=== PATIENT | male | born 1935 | race Caucasian/White ===

== ENCOUNTER 2017-12-19 19:46 | Emergency (ER) | payer MEDICARE ==
[2017-12-20 00:20] VITALS: BP 146/90
--- NOTE | 2017-12-20 07:34 | RAD ---
INDICATION: Bilateral hip pain after a fall Comparison: Similar radiograph dated April 23, 2016 TECHNIQUE: An AP view of the pelvis was obtained. FINDINGS: The left hip prosthesis is anatomically aligned in the AP projection. There is no visible periprosthetic fracture or evidence of loosening in the AP projection. There are mild degenerative changes of the right hip joint. IMPRESSION: Anatomic alignment of left hip prosthesis in the AP view.
--- NOTE | 2017-12-20 07:38 | RAD ---
INDICATION: Laceration of forehead after falling out of a wheelchair COMPARISON: Most recent CT of the brain is dated April 23, 2016 TECHNIQUE: Contiguous axial sections of the brain were obtained from the skull base to the vertex without contrast. FINDINGS: The ventricles, cisterns and sulci are within normal limits. There is a mild degree of periventricular and subcortical white matter hypoattenuation most consistent with chronic microvascular disease similar in appearance to the previous brain CT. The joe-white matter differentiation is adequately maintained and there is no sulcal effacement. No significant focal abnormality or mass effect is present. There is no evidence for intracranial hemorrhage. Overlying the right frontal bone there is mild subcutaneous thickening and induration consistent with patient's history of recent trauma. There is no underlying calvarial fracture or other acute abnormality of the visualized bones. There is a subcentimeter inspissated secretion in the right sphenoid sinus. Otherwise the visualized paranasal sinuses are clear. The mastoid air cells are well aerated bilaterally. IMPRESSION: CT findings are consistent with subcutaneous hematoma overlying the right frontal bone without acute intracranial hemorrhage or calvarial fracture.
--- NOTE | 2017-12-20 15:10 | ED ---
Braulio Gomez Sixian, scribed for Nehemias Healy MD on 12/19/17 at 2159 . Head Injury - HPI Summary HPI Summary: This patient is an 82 year old M BIBA to ED with a chief complaint of facial injury s/p a fall from his wheelchair since 1900 today. The patient rates the pain 0/10 in severity. Symptoms aggravated and alleviated by nothing. Pt states his wheelchair aburptly stopped and he fell forward on the ground. Pt with LOC per pt and NH records. - History Of Current Complaint Chief Complaint: EDFacialInjury Stated Complaint: FALL Time Seen by Provider: 12/19/17 21:39 Hx Obtained From: Patient Mechanism Of Injury: Fall From Height Of: - wheelchair Onset/Duration: Started Hours Ago, Still Present Severity Currently: None Pain Intensity: 0 Pain Scale Used: 0-10 Numeric Aggravating Factor(s): Other: - nothing Alleviating Factor(s): Other: - nothing Associated Signs And Symptoms: Other: - Patient reports LE pain when bending his legs. Patient denies lightheadedness. - Allergies/Home Medications Allergies/Adverse Reactions: Allergies Allergy/AdvReac Type Severity Reaction Status Date / Time MS Sulfa Drugs [Sulfa Drugs] Allergy Unknown Unknown Verified 07/23/13 12:36 Reaction Details PMH/Surg Hx/FS Hx/Imm Hx Endocrine/Hematology History: Reports: Hx Anemia Denies: Hx Diabetes Cardiovascular History: Denies: Hx Congestive Heart Failure, Hx Hypertension Respiratory History: Reports: Hx Seasonal Allergies GI History: Reports: Hx Gall Bladder Disease History: Reports: Hx Benign Prostatic Hyperplasia Musculoskeletal History: Reports: Hx Arthritis Sensory History: Reports: Hx Contacts or Glasses, Hx Hearing Problem Denies: Hx Hearing Aid Opthamlomology History: Reports: Hx Contacts or Glasses - Surgical History Surgery Procedure, Year, and Place: - 2002 (approx). hernia repair Hx Anesthesia Reactions: No - Immunization History Date of Tetanus Vaccine: PT STATES UNSURE Date of Influenza Vaccine: PT STATES UNSURE Infectious Disease History: No Infectious Disease History: Reports: Hx Hepatitis - about 1964 Denies: Traveled Outside the [place] in Last 30 Days - Family History Known Family History: Positive: Unknown - Unable to acquire information from pt. - Social History Alcohol Use: None Substance Use Type: Reports: None Smoking Status (MU): Never Smoked Tobacco Review of Systems Negative: Fever Positive: Other - LE pain when bending his legs Neurological: Negative - lightheadedness All Other Systems Reviewed And Are Negative: Yes Physical Exam - Summary Physical Exam Summary: Appearance: Well-appearing, no distress, Well-nourished Skin: Warm, color reflects adequate perfusion Head: 2x2 cm hematoma on the right forehead. Nontender. Dried blood ; superfical abrasions Eyes: Conjunctiva clear ENT: Normal inspection Neck: Supple, no nodes, no JVD. Respiratory: Lungs clear, Normal breath sounds, no respiratory distress Cardio: RRR, No murmur, pulses normal, brisk capillary refill Abdomen: soft, nontender, no guarding, no rebound Bowel sounds: present Musculoskeletal: Strength Intact/ ROM intact. No calf tenderness. No edema. Tender with ROM at both hips Neuro: Alert, muscle tone normal, facial symmetry, speech normal, sensory/motor intact Psychological: Normal Triage Information Reviewed: Yes Vital Signs On Initial Exam: Initial Vitals Temp Pulse Resp BP Pulse Ox 98.2 F 72 16 131/81 95 12/19/17 20:02 12/19/17 20:02 12/19/17 20:02 12/19/17 20:02 12/19/17 20:02 Vital Signs Reviewed: Yes Diagnostics - Vital Signs Vital Signs Temp Pulse Resp BP Pulse Ox 12/19/17 20:43 67 137/79 95 12/19/17 20:36 66 94 12/19/17 20:02 98.2 F 72 16 131/81 95 - Laboratory Lab Statement: Any lab studies that have been ordered have been reviewed, and results considered in the medical decision making process. - Radiology pelvis XR Radiology Interpretation Completed By: ED Physician - Pelvis XR reveals no acute fracture. ED physician has reviewed this radiology report. - CT brain CT Interpretation Completed By: Radiologist - Head CT reveals no intra or extra axial hemorrhage or collection. No mass lesion or midline shift. There is no mild to moderate cortical atrophy. The ventricles are not enlarged and are midline in position. Normal joe white matter differentiation. Low attenuation in the periventricular white matter compatible with chronic microvascular ischemic changes. The calvarium is intact. There is right supraorbital frontal scalp soft tissue swelling. Mucoperiosteal thickening and possibly a retention cyst or polyp in the right frontal sinus. The remaining visualized paranasal sinuses and mastoid air cells are clear. ED physician has reviewed this radiology report. Re-Evaluation - Re-Evaluation First Eval Change: Improved - pt awake and alert following commands. pt with minor head injury. pt continues to asymptomatic. Head Injury Course/Dx - Diagnoses Differential Diagnosis/HQI/PQRI: Cervical Sprain, Concussion With LOC, Contusion , Hematoma, Intracranial Bleed, Orbital Fracture, Skull Fracture Provider Diagnoses: Minor head injury, Abrasion Discharge - Discharge Plan Condition: Improved Disposition: HOME Patient Education Materials: Head Injury (ED), Abrasion (ED) Referrals: Marcelle Carpio MD [Primary Care Provider] - Additional Instructions: RETURN TO THE EMERGENCY DEPARTMENT FOR CHANGING OR WORSENING SYMPTOMS. The documentation as recorded by the Braulio romeo Sixian accurately reflects the service I personally performed and the decisions made by Monet martin Omari A, MD.
== END 2017-12-20 01:42 | disposition home or self-care (01) ==
LOC: ED 19:46
DX: S09.90XA Unspecified injury of head, initial encounter (principal); S01.81XA Laceration without foreign body of other part of head, initial encounter; T14.8XXA Other injury of unspecified body region, initial encounter; W05.0XXA Fall from non-moving wheelchair, initial encounter; Z88.2 Allergy status to sulfonamides; Y92.9 Unspecified place or not applicable; M25.552 Pain in left hip; M25.551 Pain in right hip
CPT/HCPCS: 70450; 72170; 99283

== ENCOUNTER 2018-05-31 08:27 | Emergency (ER) | payer MEDICARE, OTHER ==
[2018-05-31] MEDS ORDERED: Cephalexin CAP* 500 MG PO ONE (08:47)
--- NOTE | 2018-05-31 08:56 | ED ---
Skin Complaint - HPI Summary HPI Summary: Pt. is an 82-year-old male who presents emergency Department from [facility] for infection to his left hand. Pt. is unable to give a history due to hearing difficulty. No report of fever at prison. It appears pt. had a skin tear to dorsum of left hand that was steri stripped at prison. Wound now appears to be infected with surrounding cellulitis. Pt. has no complaints in the ER and is quietly watching TV. Symptoms are mild in severity. Touching affected area makes symptoms worse. Rest makes symptoms better. Past medical hx of - History of Current Complaint Chief Complaint: EDExtremityUpper Time Seen by Provider: 05/31/18 08:38 Stated Complaint: LT HAND INFECTION Hx Obtained From: Family/Street Department Dispatcher, EMS, Medical Records Pain Intensity: 2 - Additional Pertinent History Primary Care Physician: [id number] - Allergy/Home Medications Allergies/Adverse Reactions: Allergies Allergy/AdvReac Type Severity Reaction Status Date / Time Sulfa (Sulfonamide Allergy Unknown Verified 05/31/18 08:54 Antibiotics) Reaction Details Home Medications: Home Medications Trazodone HCl 50 mg PO DAILY 05/31/18 [History Confirmed 05/31/18] PMH/Surg Hx/FS Hx/Imm Hx Previously Healthy: Yes Endocrine/Hematology History: Reports: Hx Anemia Denies: Hx Diabetes Cardiovascular History: Denies: Hx Congestive Heart Failure, Hx Hypertension Respiratory History: Reports: Hx Seasonal Allergies GI History: Reports: Hx Gall Bladder Disease History: Reports: Hx Benign Prostatic Hyperplasia Musculoskeletal History: Reports: Hx Arthritis Sensory History: Reports: Hx Contacts or Glasses, Hx Hearing Problem Denies: Hx Hearing Aid Opthamlomology History: Reports: Hx Contacts or Glasses - Surgical History Surgery Procedure, Year, and Place: - 2002 (approx). hernia repair Hx Anesthesia Reactions: No - Immunization History Date of Tetanus Vaccine: PT STATES UNSURE Date of Influenza Vaccine: PT STATES UNSURE Infectious Disease History: No Infectious Disease History: Reports: Hx Hepatitis - about 1964 Denies: Traveled Outside the [place] in Last 30 Days - Family History Known Family History: Positive: Unknown - Unable to acquire information from pt. - Social History Occupation: Retired Lives: At [facility] Alcohol Use: None Substance Use Type: Reports: None Smoking Status (MU): Never Smoked Tobacco Review of Systems Constitutional: Negative Negative: Fever, Chills Gastrointestinal: Negative Negative: Vomiting, Nausea Positive: Other - Wound, redness left hand All Other Systems Reviewed And Are Negative: Yes Physical Exam Triage Information Reviewed: Yes Vital Signs On Initial Exam: Initial Vitals Temp Pulse Resp BP Pulse Ox 98.1 F 60 18 139/84 96 05/31/18 08:33 05/31/18 08:33 05/31/18 08:33 05/31/18 08:33 05/31/18 08:33 Vital Signs Reviewed: Yes Appearance: Positive: Well-Appearing - Pt. sitting up in bed, watching TV in NAD. Awake and alert. Skin: Positive: Warm, Dry Head/Face: Positive: Normal Head/Face Inspection Eyes: Positive: Normal Neck: Positive: Supple Musculoskeletal: Positive: Other - Steri strips in place to dorsum of left hand. Steri strips removed and there is a wound noted to the dorsum of hand with sorrounding erythema. No induration or fluctuance. No significant tenderness. No lymphangitis. Neurological: Positive: Normal, CN Intact II-III Psychiatric: Positive: Affect/Mood Appropriate Diagnostics - Vital Signs Vital Signs Temp Pulse Resp BP Pulse Ox 05/31/18 08:33 98.1 F 60 18 139/84 96 - Laboratory Lab Statement: Any lab studies that have been ordered have been reviewed, and results considered in the medical decision making process. Course/Dx - Course Course Of Treatment: Pt. presenting from prison with wound infection and mild cellulitis. He is afebrile and nontoxic appearing. Wound was cleaned. Will start on Keflex QID, first dose given in ED. To keep wound clean and dry. Will need wound check with PCP in 2 days. To return to ER for increased redness, swelling, fever, vomiting. - Differential Diagnoses - Skin Complaint Differential Diagnoses: Abscess, Cellulitis - Diagnoses Provider Diagnoses: Wound infection, Cellulitis Discharge - Sign-Out/Discharge Documenting (check all that apply): Patient Departure - Discharge Plan Condition: Good Disposition: HOME Prescriptions: Cephalexin CAP* [Keflex CAP*] 500 mg PO QID 10 Days #40 cap Patient Education Materials: Cellulitis (ED) Referrals: Marcelle Carpio MD [Primary Care Provider] - Additional Instructions: Follow up with PCP for wound check in 2 days Antibiotic as directed Keep wound clean and dry Return to ER for increased redness, swelling, fever, vomiting - Billing Disposition and Condition Condition: GOOD Disposition: Home
[2018-05-31 11:12] VITALS: BP 132/80
== END 2018-05-31 11:11 | disposition home or self-care (01) ==
LOC: ED 08:27
DX: S61.412A Laceration without foreign body of left hand, initial encounter (principal); L03.114 Cellulitis of left upper limb; X58.XXXA Exposure to other specified factors, initial encounter; Y92.9 Unspecified place or not applicable; Z88.2 Allergy status to sulfonamides
CPT/HCPCS: 99283; A9270-GY

== ENCOUNTER 2019-03-02 10:33 | Emergency (ER) | payer MEDICARE, OTHER ==
[2019-03-02 11:32] LABS: ABS Basophils 0.1 10^3/ul (0-0.2); ABS Eosinophils 0.6 10^3/ul (0-0.6); ABS Lymphocytes 0.5 10^3/ul (1.0-4.8); ABS Monocytes 0.8 10^3/ul (0-0.8); ABS Neutrophils 6.7 10^3/ul (1.5-7.7); Eosinophil % 6.4 %; Hematocrit 45 % (42-52); Hemoglobin 15.3 g/dL (14.0-18.0); Lymphocyte % 6.3 %; Mean Corpuscular HGB Conc 34 g/dL (31-36); Mean Corpuscular Hemoglobin 33 pg (27-31); Mean Corpuscular Volume 98 fL (80-94); Mean Platelet Volume 8.6 fL (7.4-10.4); Platelet Count 233 10^3/uL (150-450); Red Blood Count 4.62 10^6 /uL (4.18-5.48); Red Cell Distribution Width 13 % (10.5-15); White Blood Count 8.6 10^3/uL (3.5-10.8)
[2019-03-02 11:53] LABS: Albumin 3.7 g/dL (3.2-5.2); Albumin/Globulin Ratio 1.2 (1-3); BUN/Creatinine Ratio 35.6 (8-20); C Reactive Protein 3.16 mg/L (<8.01); Calcium 8.8 mg/dL (8.6-10.3); EGFR African American 124.5 (>60); EGFR Non-African American 102.9 (>60); Globulin 3.2 g/dL (2-4); Potassium 4.5 mmol/L (3.5-5.0); Total Bilirubin 0.4 mg/dL (0.2-1.0); Total Protein 6.9 g/dL (6.4-8.9)
--- NOTE | 2019-03-02 12:17 | ED ---
Respiratory - HPI Summary HPI Summary: Patient is an 83-year-old male presents to the ED for a reevaluation of a pneumonia. Patient's from [facility] and has a history of dementia. He was diagnosed with pneumonia last week and was placed on antibiotics. Practitioner states despite being on antibiotics, he continues to worsen. History is difficult as patient has dementia, however patient states he denies any SOB, CP , abdominal pain, nausea, vomiting, diarrhea, constipation. Continues to eat and drink okay. Denies any subjective fevers, sweats, chills. He says his only complaint today is that he is fatigued. Has been on antibiotics. - History of Current Complaint Chief Complaint: EDGeneral Stated Complaint: REVAL FOR PNUEMONIA PER EMS Time Seen by Provider: 03/02/19 10:35 Hx Obtained From: Patient Onset/Duration: Sudden Onset Timing: Constant Initial Severity: Moderate Current Severity: Moderate Pain Intensity: 0 Sputum Amount: Scant Aggravating Factor(s): Nothing Alleviating Factor(s): Nothing Associated Signs and Symptoms: Negative - Allergy/Home Medications Allergies/Adverse Reactions: Allergies Allergy/AdvReac Type Severity Reaction Status Date / Time Sulfa (Sulfonamide Allergy Unknown Verified 05/31/18 08:54 Antibiotics) Reaction Details Home Medications: Home Medications Acetaminophen [Acetaminophen Extra Strength] 500 mg PO Q4HR PRN 03/02/19 [ History Confirmed 03/02/19] Albuterol 2.5MG/3ML (0.083%)* [Ventolin 2.5 MG/3 ML NEB.MEME*] 2.5 mg INH Q6H PRN 03/02/19 [History Confirmed 03/02/19] Amoxicillin/Clavulanate TAB* [Augmentin TAB 875*] 875 mg PO BID 03/02/19 [ History Confirmed 03/02/19] Artificial Tears* 15 ML BTL [Polyvinyl Alcohol 1.4% OPTH*] 2 drop BOTH EYES BEDTIME PRN 03/02/19 [History Confirmed 03/02/19] Cholecalciferol (Vitamin D3) [Vitamin D3] 50,000 unit PO MONTHLY 03/02/19 [ History Confirmed 03/02/19] Magnesium Hydroxide LIQ* [Milk of Magnesia LIQ*] 30 ml PO Q3D PRN 03/02/19 [ History Confirmed 03/02/19] Sennosides/Docusate Sodium [Senna-S Tablet] 2 tab PO BID PRN 03/02/19 [History Confirmed 03/02/19] Tamsulosin CAP* [Flomax CAP*] 0.4 mg PO BEDTIME 03/02/19 [History Confirmed ] guaiFENesin LIQ* [Robitussin*] 5 mg PO Q4H PRN 03/02/19 [History Confirmed 03/02] oxyCODONE/Acetamin 5/325 MG* [Percocet 5/325 TAB*] 1 tab PO BID PRN MDD 2 tabs 03/02/19 [History Confirmed 03/02/19] traZODone TAB* [Desyrel TAB*] 25 mg PO BEDTIME PRN 03/02/19 [History Confirmed 03/02/19] PMH/Surg Hx/FS Hx/Imm Hx Previously Healthy: Yes Endocrine/Hematology History: Reports: Hx Anemia Denies: Hx Diabetes Cardiovascular History: Denies: Hx Congestive Heart Failure, Hx Hypertension Respiratory History: Reports: Hx Seasonal Allergies GI History: Reports: Hx Gall Bladder Disease History: Reports: Hx Benign Prostatic Hyperplasia Musculoskeletal History: Reports: Hx Arthritis Sensory History: Reports: Hx Contacts or Glasses, Hx Hearing Problem Denies: Hx Hearing Aid Opthamlomology History: Reports: Hx Contacts or Glasses - Surgical History Surgery Procedure, Year, and Place: - 2002 (approx). hernia repair Hx Anesthesia Reactions: No - Immunization History Date of Tetanus Vaccine: PT STATES UNSURE Date of Influenza Vaccine: PT STATES UNSURE Hx Pertussis Vaccination: Yes Immunizations Up to Date: Unable to Obtain/Confirm Infectious Disease History: Unable to Obtain/Confirm Infectious Disease History: Reports: Hx Hepatitis - about 1964 Denies: Traveled Outside the [place] in Last 30 Days - Family History Known Family History: Positive: Unknown - Unable to acquire information from pt. - Social History Occupation: Unemployed Lives: [facility] Alcohol Use: None Hx Substance Use: No Substance Use Type: Reports: None Smoking Status (MU): Never Smoked Tobacco Review of Systems Positive: Fatigue Eyes: Negative Negative: Palpitations, Chest Pain Negative: Shortness Of Breath, Cough Genitourinary: Negative Positive: no symptoms reported, see HPI Negative: Arthralgia, Myalgia Skin: Negative All Other Systems Reviewed And Are Negative: Yes Physical Exam Triage Information Reviewed: Yes Vital Signs On Initial Exam: Initial Vitals Temp Pulse Resp BP Pulse Ox 98.4 F 68 22 111/76 94 03/02/19 10:40 03/02/19 10:40 03/02/19 10:40 03/02/19 10:40 03/02/19 10:40 Vital Signs Reviewed: Yes Appearance: Positive: Well-Appearing, Well-Nourished Skin: Positive: Warm, Skin Color Reflects Adequate Perfusion Head/Face: Positive: Normal Head/Face Inspection Eyes: Positive: EOMI, Conjunctiva Clear Neck: Positive: No Lymphadenopathy Respiratory/Lung Sounds: Positive: Wheezes - bilateral Cardiovascular: Positive: RRR, Pulses are Symmetrical in both Upper and Lower Extremities Musculoskeletal: Positive: Strength/ROM Intact Neurological: Positive: Speech Normal Psychiatric: Positive: Affect/Mood Appropriate Diagnostics - Vital Signs Vital Signs Temp Pulse Resp BP Pulse Ox 03/02/19 11:44 59 18 126/81 91 03/02/19 11:16 58 17 122/77 93 03/02/19 11:00 60 23 89 03/02/19 10:44 61 16 111/76 93 03/02/19 10:40 98.4 F 68 22 111/76 94 - Laboratory Lab Results: Lab Results 03/02/19 03/02/19 03/02/19 Range/Units 11:15 11:15 11:15 WBC 8.6 (3.5-10.8) 10^3/uL RBC 4.62 (4.18-5.48) 10^6 /uL Hgb 15.3 (14.0-18.0) g/dL Hct 45 (42-52) % MCV 98 H (80-94) fL MCH 33 H (27-31) pg MCHC 34 (31-36) g/dL RDW 13 (10.5-15) % Plt Count 233 (150-450) 10^3/uL MPV 8.6 (7.4-10.4) fL Neut % (Auto) 77.7 % Lymph % (Auto) 6.3 % [place] % (Auto) 8.8 % Eos % (Auto) 6.4 % Baso % (Auto) 0.8 % Absolute Neuts (auto) 6.7 (1.5-7.7) 10^3/ul Absolute Lymphs (auto) 0.5 L (1.0-4.8) 10^3/ul Absolute Monos (auto) 0.8 (0-0.8) 10^3/ul Absolute Eos (auto) 0.6 (0-0.6) 10^3/ul Absolute Basos (auto) 0.1 (0-0.2) 10^3/ul Absolute Nucleated RBC 0.0 10^3/ul Nucleated RBC % 0.0 Sodium 139 (135-145) mmol/L Potassium 4.5 (3.5-5.0) mmol/L Chloride 106 (101-111) mmol/L Carbon Dioxide 27 (22-32) mmol/L Anion Gap 6 (2-11) mmol/L BUN 26 H (6-24) mg/dL Creatinine 0.73 (0.67-1.17) mg/dL Est GFR ( Amer) 124.5 (>60) Est GFR (Non-Af Amer) 102.9 (>60) BUN/Creatinine Ratio 35.6 H (8-20) Glucose 121 H (70-100) mg/dL Lactic Acid 1.4 (0.5-2.0) mmol/L Calcium 8.8 (8.6-10.3) mg/dL Total Bilirubin 0.40 (0.2-1.0) mg/dL AST 15 (13-39) U/L ALT 15 (7-52) U/L Alkaline Phosphatase 85 (34-104) U/L Troponin I 0.00 (<0.04) ng/mL C-Reactive Protein 3.16 (<8.01) mg/L Total Protein 6.9 (6.4-8.9) g/dL Albumin 3.7 (3.2-5.2) g/dL Globulin 3.2 (2-4) g/dL Albumin/Globulin Ratio 1.2 (1-3) Result Diagrams: 03/02/19 11:15 03/02/19 11:15 Lab Statement: Any lab studies that have been ordered have been reviewed, and results considered in the medical decision making process. Disposition - Course Course Of Treatment: Patient is here for reevaluation of his pneumonia. Currently on antibiotics, however is not improving per provider at [facility]. X-ray obtained which shows low lung volumes without evidence of a pneumonia. Labs okay with a normal white count. Vital signs are stable. Patient appears well. Wheezing noted bilaterally. However patient denies shortness of breath. He is diagnosed with bronchitis without PNA. If any symptoms worsen, he will need to be re-seen. He will be sent back to [facility]. - Differential Dx - Cardiopulmonary Differential Diagnoses - Cardiopulmonary: Other - PNA, infection, viral syndrome - Diagnoses Provider Diagnoses: Bronchitis Discharge - Sign-Out/Discharge Documenting (check all that apply): Patient Departure Patient Received Moderate/Deep Sedation with Procedure: No - Discharge Plan Condition: Stable Disposition: HOME Patient Education Materials: Acute Bronchitis (ED) Referrals: Marcelle Carpio MD [Primary Care Provider] - 2 Days Additional Instructions: Please return to the ED for worsening symptoms Your labs are normal today Chest xray shows no evidence of a pneumonia Please follow up with your PCP or practitioner at [facility] by tomorrow - Billing Disposition and Condition Condition: STABLE Disposition: Home
[2019-03-02 12:18] VITALS: BP 119/77
== END 2019-03-02 12:30 | disposition home or self-care (01) ==
LOC: ED 10:33
DX: J40 Bronchitis, not specified as acute or chronic (principal); F03.90 Unspecified dementia, unspecified severity, without behavioral disturbance, psychotic disturbance, mood disturbance, and anxiety; Z88.2 Allergy status to sulfonamides; D64.9 Anemia, unspecified; N40.0 Benign prostatic hyperplasia without lower urinary tract symptoms; I10 Essential (primary) hypertension
CPT/HCPCS: 36415; 71045; 80053; 83605; 84484; 85025; 86140; 99283

== ENCOUNTER 2019-03-17 01:59 | Inpatient (IN) | payer MEDICARE, OTHER ==
[2019-03-17] MEDS ORDERED: Albuterol/Ipratropium NEB.SOL* Albuterol 2.5 MG/Ipratropium 0.5 MG 3 ML INH ONE (02:26)
[2019-03-17] MEDS ORDERED: Albuterol 2.5 MG/3 ML NEB.SOL* (0.083%) INH ONE (02:26)
[2019-03-17] MEDS ORDERED: Fluconazole 100 MG TAB* TAB PO ONE (02:27)
[2019-03-17] MEDS ORDERED: Clotrimazole 1% CREAM* 30 GM TOPICAL ONE (02:27)
--- NOTE | 2019-03-17 02:41 | ED ---
Complex/Multi-Sys Presentation - HPI Summary HPI Summary: 83 year old M brought in by ambulance to [facility] from [facility] with a chief complaint of altered mental status since two hours ago. The patient rates the pain 0/10 in severity. Symptoms aggravated by nothing. Symptoms alleviated by nothing. [facility] staff report confusion and fatigue. Patient reports scrotum pain. - History Of Current Complaint Chief Complaint: EDGeneral Time Seen by Provider: 03/17/19 02:15 Hx Obtained From: Patient, Other: - [facility] staff Onset/Duration: Lasting Hours - 2, Still Present Timing: Constant Aggravating Factor(s): Nothing Alleviating Factor(s): Nothing Associated Signs And Symptoms: Positive: Other - Allergies/Home Medications Allergies/Adverse Reactions: Allergies Allergy/AdvReac Type Severity Reaction Status Date / Time Sulfa (Sulfonamide Allergy Unknown Verified 05/31/18 08:54 Antibiotics) Reaction Details PMH/Surg Hx/FS Hx/Imm Hx Previously Healthy: No Endocrine/Hematology History: Reports: Hx Anemia Denies: Hx Diabetes Cardiovascular History: Denies: Hx Congestive Heart Failure, Hx Hypertension Respiratory History: Reports: Hx Seasonal Allergies GI History: Reports: Hx Gall Bladder Disease History: Reports: Hx Benign Prostatic Hyperplasia Musculoskeletal History: Reports: Hx Arthritis Sensory History: Reports: Hx Contacts or Glasses, Hx Hearing Problem Denies: Hx Hearing Aid Opthamlomology History: Reports: Hx Contacts or Glasses - Surgical History Surgery Procedure, Year, and Place: - 2002 (approx). hernia repair Hx Anesthesia Reactions: No - Immunization History Date of Tetanus Vaccine: PT STATES UNSURE Date of Influenza Vaccine: PT STATES UNSURE Infectious Disease History: No Infectious Disease History: Reports: Hx Hepatitis - about 1964 Denies: Traveled Outside the in Last 30 Days - Family History Known Family History: Negative: Blood Disorder - Social History Alcohol Use: None Hx Substance Use: No Substance Use Type: Reports: None Hx Tobacco Use: No Smoking Status (MU): Never Smoked Tobacco Review of Systems Positive: Fatigue Positive: other - scrotum pain Neurological: Other - AMS, confusion All Other Systems Reviewed And Are Negative: Yes Physical Exam - Summary Physical Exam Summary: VITAL SIGNS: Reviewed. GENERAL: Patient is a well-developed and nourished MALE who is lying comfortable in the stretcher. Patient is not in any acute respiratory distress. Patient is unkept. HEAD AND FACE: No signs of trauma. No ecchymosis, hematomas or skull depressions. No sinus tenderness. EYES: PERRLA, EOMI x 2, No injected conjunctiva, no nystagmus. EARS: Hearing grossly intact. Ear canals and tympanic membranes are within normal limits. MOUTH: Oropharynx within normal limits. NECK: Supple, trachea is midline, no adenopathy, no JVD, no carotid bruit, no c- spine tenderness, neck with full ROM CHEST: Symmetric, no tenderness at palpation LUNGS: He has decreased breath sounds bilaterally with expiratory audible wheezing CVS: Regular rate and rhythm, S1 and S2 present, no murmurs or gallops appreciated. ABDOMEN: Soft, non-tender. No signs of distention. No rebound no guarding, and no masses palpated. Bowel sounds are normal. EXTREMITIES: FROM in all major joints, no edema, no cyanosis or clubbing. NEURO: Alert and oriented x 3. No acute neurological deficits. Speech is normal and follows commands. SKIN: Dry and warm Genital exam chaperoned by nurse Amara: Scrotum is macerated, moist. The exam is consistent with severe fungal infection. Triage Information Reviewed: Yes Vital Signs On Initial Exam: Initial Vitals Temp Pulse Resp BP Pulse Ox 97.9 F 65 16 133/77 93 03/17/19 02:05 03/17/19 02:05 03/17/19 02:05 03/17/19 02:05 03/17/19 02:05 Vital Signs Reviewed: Yes Diagnostics - Vital Signs Vital Signs Temp Pulse Resp BP Pulse Ox 03/17/19 02:05 97.9 F 65 16 133/77 93 - Laboratory Result Diagrams: 03/17/19 02:44 03/17/19 02:44 Lab Statement: Any lab studies that have been ordered have been reviewed, and results considered in the medical decision making process. - Radiology CXR Radiology Interpretation Completed By: ED Physician Summary of Radiographic Findings: Poor inspiratory effort. No acute infiltrate. Pending official report. Complex Multi-Symp Course/Dx Course Of Treatment: 83 year old M brought in by ambulance to [facility] from [facility] with a chief complaint of altered mental status, confusion, fatigue, scrotum pain since two hours ago. Physical exam findings show decreased breath sounds bilaterally with expiratory auditory wheezing. CXR shows poor inspiratory effort and no acute infiltrate. UAs consistent with UTI. Scrotal exam is consistent with fungal infection. In ED course, patient was given IV fluids, Albuterol, Diflucan, and clotrimazole cream. Per nurse Amara, patient has become increasing confused in the ED. Spoke with Dr. Adames, hospitalist, who agrees to admit patient. The patient will be admitted to hospitalist. The patient is agreeable to admission. - Diagnoses Provider Diagnoses: Urinary tract infection, Fungal infection - Physician Notifications Discussed Care Of Patient With: Janine Adames Time Discussed With Above Provider: 03:49 Instructed by Provider To: Other - Dr. Adames, judyist, agrees to admit patient Discharge - Sign-Out/Discharge Documenting (check all that apply): Patient Departure - Admit Patient Received Moderate/Deep Sedation with Procedure: No - Discharge Plan Condition: Stable Disposition: ADMITTED TO [facility] Patient Education Materials: Urinary Tract Infection in Men (ED) Referrals: Marcelle Carpio MD [Primary Care Provider] - 3 Days Additional Instructions: Follow up with your primary care provider in 3 days. Return to the Emergency Department for new or worsening symptoms. - Attestation Statements Document Initiated by Scribe: Yes Documenting Scribe: Karla Suero Provider For Whom Scribe is Documenting (Include Credential): Janice Oneill MD Scribe Attestation: Karla Gomez, scribed for Janice Oneill MD on 03/17/19 at 0351. Status of Scribe Document: Ready
[2019-03-17 02:44] LABS: Urine Appearance Turbid; Urine Bacteria 1+ (Absent); Urine Bilirubin Negative (Negative); Urine Blood Negative (Negative); Urine Color Amber; Urine Glucose Negative (Negative); Urine Ketones Negative (Negative); Urine Nitrite Negative (Negative); Urine Protein 2+(100 mg/dL) (Negative); Urine Red Blood Cell Trace(0-2/hpf) (Absent); Urine Specific Gravity 1.017 (1.010-1.030); Urine Uric Acid Crystals Present (Absent); Urine Urobilinogen Negative (Negative); Urine White Blood Cell 3+(>20/hpf) (Absent)
[2019-03-17] MEDS ORDERED: Piperacillin/Tazobac ADVAN(*) 3.375 GM in NS 0.9% 100 ML* 100 ML IVPB ONE (03:04)
[2019-03-17 03:10] LABS: Albumin 3.8 g/dL (3.2-5.2); Albumin/Globulin Ratio 1.2 (1-3); C Reactive Protein 10.4 mg/L (<8.01); EGFR African American 120.6 (>60); EGFR Non-African American 99.7 (>60); Globulin 3.2 g/dL (2-4); Total Bilirubin 0.5 mg/dL (0.2-1.0)
[2019-03-17 03:15] LABS: Potassium 4.3 mmol/L (3.5-5.0)
[2019-03-17 03:19] LABS: Activated Partial Thrombo Time 41.3 seconds (26.0-38.0); INR 1.04 (0.82-1.09)
[2019-03-17 03:33] LABS: ABS Eosinophils 0.5 10^3/ul (0-0.6); ABS Lymphocytes 0.5 10^3/ul (1.0-4.8); ABS Neutrophils 5.9 10^3/ul (1.5-7.7); Eosinophil % 6.1 %; Hematocrit 46 % (42-52); Hemoglobin 15.8 g/dL (14.0-18.0); Lymphocyte % 6.7 %; Mean Corpuscular HGB Conc 34 g/dL (31-36); Mean Corpuscular Hemoglobin 33 pg (27-31); Mean Corpuscular Volume 97 fL (80-94); Mean Platelet Volume 9.2 fL (7.4-10.4); Nucleated Red Blood Cells % 0.2; Platelet Count 249 10^3/uL (150-450); Red Blood Count 4.79 10^6 /uL (4.18-5.48); Red Cell Distribution Width 13 % (10-15)
[2019-03-17] MEDS ORDERED: Ondansetron INJ* 2 MG/ML VIAL IV PRN (04:14)
[2019-03-17] MEDS ORDERED: Albuterol/Ipratropium NEB.SOL* Albuterol 2.5 MG/Ipratropium 0.5 MG 3 ML INH PRN (04:14)
[2019-03-17] MEDS ORDERED: Albuterol 2.5 MG/3 ML NEB.SOL* (0.083%) INH PRN (04:16)
[2019-03-17] MEDS ORDERED: Artificial Tears* 15 ML BTL BOTH EYES PRN (04:16)
[2019-03-17] MEDS: Lactated Ringers 1000 ML Bag* 1,000 ML IV SCH ×2 (05:44→16:20)
[2019-03-17] MEDS: Heparin VIAL(*) 5000 UNITS/ML VIAL (FIVE THOUSAND) SUBCUT SCH ×3 (05:44→20:57)
[2019-03-17] MEDS: Nystatin OINT* 15 GM TOPICAL SCH ×4 (05:46→21:01)
--- NOTE | 2019-03-17 06:50 | HP ---
CC: [facility] * HISTORY AND PHYSICAL: DATE OF ADMISSION: 03/17/19 TIME OF EVALUATION: 0400. PRIMARY CARE PHYSICIAN: [facility]. CHIEF COMPLAINT: Altered mental status. HISTORY OF PRESENT ILLNESS: This is an 83-year-old male with a past medical history of rheumatoid arthritis, wheelchair bound, who presented to the emergency room from [facility] with a change in mental status. The nursing staff states he has been having issues with a scrotal wound and the decision was made to put in a López to help with healing. This evening he began pulling on his López. He pulled it out and began hallucinating and was found to have a low-grade temp of 99. At that time, decision was made by myself to bring him to the emergency room for further evaluation. The patient had a López placed back in, in the emergency room and initially was mentating and appropriate and then became confused during his emergency room visit. On my encounter, the patient is unable to stay awake to have any meaningful interaction. He is able to tell me his name. He states he is at the hospital. Otherwise, I cannot get him to follow any commands or interact due to his somnolence. Therefore, unable to obtain a review of systems. In the emergency room, the patient had labs and imaging. He was given Zosyn and Diflucan, clotrimazole topical, DuoNeb, albuterol nebulizer and referred to the hospitalist service for further evaluation. PAST MEDICAL HISTORY: According to the records: 1. Failure to thrive. 2. Constipation. 3. Hyperlipidemia. 4. Generalized muscle weakness. 5. History of a pathologic fracture. 6. Rheumatoid arthritis. 7. BPH. 8. Major depressive disorder. 9. Wheelchair bound. 10. Vitamin D deficiency. 11. Scrotal wound. MEDICATIONS: 1. Artificial tears 2 drops in both eyes at bedtime. 2. Tamsulosin 0.4 mg p.o. b.i.d. 3. Vitamin D3 50,000 units monthly. 4. Percocet b.i.d. 5. Senna 2 tablets a day for constipation. 6. Albuterol every 6 hours as needed. 7. Guaifenesin 5 mL every 4 hours as needed. 8. Milk of magnesia as needed. 9. Trazodone 25 mg at bedtime as needed. 10. Tylenol 500 mg every 4 hours as needed. ALLERGIES: SULFA. FAMILY HISTORY: Unable to obtain due to the patient's somnolence. SOCIAL HISTORY: The patient resides at [facility]. Healthcare proxy is Hollie Jean-Baptiste, his sister. Code status, MOLST form states he is a full code. REVIEW OF SYSTEMS: Unable to obtain due to the patient's somnolence. PHYSICAL EXAMINATION GENERAL: The patient is somnolent, sonorous respirations. VITAL SIGNS: Temp 97.9, pulse rate 63, respiratory rate 14, oxygen saturation 95 % on room air, blood pressure 121/69. HEENT: Head normocephalic. Pupils equal and reactive. Mildly injected. Oropharynx: Mucous membranes dry. NECK: Supple. No lymphadenopathy. RESPIRATORY: Upper airway adventitious lung sounds with faint bilateral expiratory wheezing. No increased work of breathing. Does have periods of apnea with sonorous respirations. CARDIAC: Regular rate and rhythm. Systolic murmur heard throughout. ABDOMEN: Soft, nontender, nondistended. EXTREMITIES: Trace pretibial edema. DERMATOLOGIC: The patient with edematous, erythematous scrotum with crusted lesions, patches over his scrotum. NEUROLOGIC: The patient is alert and oriented; however, he is unable to follow commands or have any meaningful interaction at this time. DIAGNOSTIC STUDIES/LAB DATA: White count 8, hemoglobin 15.8, hematocrit 46, platelets 249. INR is 1.04. Sodium 136, potassium 4.3, chloride 102, bicarb 27 , BUN 24, creatinine 0.75, glucose 88. Troponin is 0. CRP is 10. BNP is 54. Urine shows +3 leuks, +3 whites, trace reds. Bacteria, yeast present. Chest x-ray: Poor film, some prominent interstitial markings. ASSESSMENT AND PLAN: This is an 83-year-old male with a past medical history of rheumatoid arthritis, failure to thrive, wheelchair bound, presented to [facility] in the setting of altered mental status. 1. Altered mental status. Assessment: I suspect it is related to his urinary tract infection. Now he is very somnolent, so there is also a concern for a hypercapnic respiratory failure or also a neurologic process. Plan: We will admit him to [address] [place] [address]. We will obtain a head CT and an ABG to rule out any other etiology behind his altered mental status. Continue him on IV fluids and switch him over to ceftriaxone and follow up on his urine culture. Keep his López in place. We will keep him NPO for now as he has high aspiration risk. He was given p.o. Diflucan and per nursing staff he was choking on that. We will have Speech Therapy evaluate him and also check a prealbumin. 2. Scrotal lesion. Assessment: The patient given Diflucan, started on clotrimazole in the emergency room. I suspect this is yeast with secondary impetigo lesion over his scrotum. We will start him on nystatin ointment and ceftriaxone. We will also cover for impetiginous lesion. We will also order wound care to follow up in case there is no improvement. 3. Chronic medical problems. I am holding off his p.o. medications in the setting of his somnolence and high aspiration risk. 4. FEN: As mentioned NPO. IV fluids. 5. DVT prophylaxis: The patient scores high risk. Place him on heparin subcu t.i.d. 6. Code status: MOLST form is a full code. We would readdress this with the healthcare proxy during the day. PATIENT TIME: Greater than 45 minutes was spent doing the history and physical , more than half that time spent in direct patient contact. [id number]/[facility] #: [id number] KAIT
[2019-03-17] MEDS: cefTRIAXone(*) 1 GM in NS 0.9% 50 ML* 50 ML IVPB SCH (09:04)
--- NOTE | 2019-03-17 12:00 | PN ---
Subjective Date of Service: 03/17/19 Interval History: Mr. Myles is feeling fine today. He is not sure why he is in the hospital. He offers no complaints except wanting his glasses which he does not have here in the hospital. Denies CP, SOB, N/V. No concerns from nursing. Family History: Unchanged from Admission Social History: Unchanged from Admission Past Medical History: Unchanged from Admission Objective Active Medications: Albuterol (Ventolin 2.5 Mg/3 Ml Neb.Maria Elena*) 2.5 mg INH Q6H PRN SOB/WHEEZING Albuterol/Ipratropium (Duoneb (Albuterol 2.5 Mg/Ipratropium 0.5 Mg)) 1 neb INH [id number] AWAKE PRN sob/wheexing Heparin Sodium (Porcine) (Heparin Vial(*)) 5,000 units SUBCUT Q8HR [facility] Lactated Ringer's (Lactated Ringers 1000 Ml Bag*) 1,000 mls @ 100 mls/hr IV PER RATE [facility] Ceftriaxone Sodium 1 gm/ (Sodium Chloride) 50 mls @ 200 mls/hr IVPB Q24H [facility] Nystatin (Nystatin Oint*) 1 applic TOPICAL TID [facility] Ondansetron HCl (Zofran Inj*) 4 mg IV Q4H PRN NAUSEA/VOMITING Polyvinyl Alcohol (Polyvinyl Alcohol 1.4% Opth*) 2 drop BOTH EYES BEDTIME PRN DRY EYE Vital Signs - 8 hr 03/17/19 03/17/19 03/17/19 04:00 04:19 04:26 Temperature 97.2 F Pulse Rate 69 66 65 Respiratory 21 17 22 Rate Blood Pressure 122/70 98/52 (mmHg) O2 Sat by Pulse 94 95 97 Oximetry 03/17/19 03/17/19 03/17/19 04:49 05:09 05:14 Temperature 98.9 F 97.2 F Pulse Rate 65 67 65 Respiratory 17 18 22 Rate Blood Pressure 115/73 115/73 (mmHg) O2 Sat by Pulse 94 94 97 Oximetry 03/17/19 11:48 Temperature Pulse Rate Respiratory Rate Blood Pressure 82/48 (mmHg) O2 Sat by Pulse Oximetry Oxygen Devices in Use Now: None Appearance: Elderly male laying in bed in NAD Eyes: No Scleral Icterus Ears/Nose/Mouth/Throat: Mucous Membranes Moist Neck: NL Appearance and Movements; NL JVP, Trachea Midline Respiratory: Symmetrical Chest Expansion and Respiratory Effort, Clear to Auscultation Cardiovascular: NL Sounds; No Murmurs; No JVD, RRR Abdominal: NL Sounds; No Tenderness; No Distention Extremities: No Edema Neurological: - - Oriented to self Lines/Tubes/Other Access: Clean, Dry and Intact López, Clean, Dry and Intact Peripheral IV Nutrition: Taking PO's Result Diagrams: 03/17/19 02:44 03/17/19 02:44 Assess/Plan/Problems-Billing Assessment: Mr. Myles is an 83 yo M with PMH of FTT, HLD, RA, BPH, and depression; who resides at [facility] presented to the ED with AMS and was found to have a likely UTI. - Patient Problems (1) UTI (urinary tract infection) Comment: - Catheter-related, present on admission; new catheter placed in the ED - Based on UA; urine culture pending - López previously placed at [facility] d/t nonhealing scrotal wounds - Continue ceftriaxone (2) Scrotal lesion Code(s): N50.9 - DISORDER OF MALE GENITAL ORGANS, UNSPECIFIED Comment: - Erythema, edema, and dry lesions noted - Suspect yeast and/or impetigo - Received Diflucan x1 on admission - Continue nystatin (3) Altered mental status Code(s): R41.82 - ALTERED MENTAL STATUS, UNSPECIFIED Comment: - Secondary to UTI - Baseline mental status not clear (4) BPH (benign prostatic hyperplasia) Code(s): N40.0 - BENIGN PROSTATIC HYPERPLASIA WITHOUT LOWER URINRY TRACT SYMP Comment: - Continue tamsulosin (5) DVT prophylaxis Comment: - Heparin SQ (6) Full code status Code(s): Z78.9 - OTHER SPECIFIED HEALTH STATUS Comment: Status and Disposition: Inpatient. Anticipate d/c back to [facility] when medically stable. Attending: Nicole Dos Santos
[2019-03-17] MEDS ORDERED: traZODone TAB* 50 MG TAB PO PRN (12:06)
[2019-03-17] MEDS: Tamsulosin CAP* 0.4 MG PO SCH (20:57)
[2019-03-18] MEDS: Heparin VIAL(*) 5000 UNITS/ML VIAL (FIVE THOUSAND) SUBCUT SCH ×3 (05:17→21:22)
[2019-03-18 06:10] LABS: ABS Basophils 0.1 10^3/ul (0-0.2); ABS Eosinophils 0.8 10^3/ul (0-0.6); ABS Lymphocytes 0.7 10^3/ul (1.0-4.8); ABS Monocytes 0.7 10^3/ul (0-0.8); Eosinophil % 12.4 %; Hematocrit 45 % (42-52); Hemoglobin 15.4 g/dL (14.0-18.0); Mean Corpuscular HGB Conc 34 g/dL (31-36); Mean Corpuscular Hemoglobin 33 pg (27-31); Mean Corpuscular Volume 98 fL (80-94); Mean Platelet Volume 8.8 fL (7.4-10.4); Nucleated Red Blood Cells % 0.1; Platelet Count 200 10^3/uL (150-450); Red Blood Count 4.63 10^6 /uL (4.18-5.48); Red Cell Distribution Width 13 % (10-15); White Blood Count 6.1 10^3/uL (3.5-10.8)
[2019-03-18 06:27] LABS: BUN/Creatinine Ratio 27.1 (8-20); Calcium 8.8 mg/dL (8.6-10.3); EGFR African American 159.1 (>60); EGFR Non-African American 131.5 (>60); Potassium 4.3 mmol/L (3.5-5.0)
[2019-03-18] MEDS: cefTRIAXone(*) 1 GM in NS 0.9% 50 ML* 50 ML IVPB SCH (08:30)
[2019-03-18] MEDS: Nystatin OINT* 15 GM TOPICAL SCH ×3 (08:30→21:25)
--- NOTE | 2019-03-18 11:36 | PN ---
Subjective Date of Service: 03/18/19 Interval History: Patient resting with eyes closed on arrival; easily wakes. Answers most questions appropriately - was able to tell me where he was, who the president is but does not know the date. He reports he feels better - less pain, and overall feels "better". Reports "okay appetite", denies fever/chills. No CP/SOB Family History: Unchanged from Admission Social History: Unchanged from Admission Past Medical History: Unchanged from Admission Objective Active Medications: Albuterol (Ventolin 2.5 Mg/3 Ml Neb.Maria Elena*) 2.5 mg INH Q6H PRN PRN Reason: SOB/WHEEZING Albuterol/Ipratropium (Duoneb (Albuterol 2.5 Mg/Ipratropium 0.5 Mg)) 1 neb INH [id number] AWAKE PRN PRN Reason: sob/wheexing Heparin Sodium (Porcine) (Heparin Vial(*)) 5,000 units SUBCUT Q8HR [facility] Last Admin: 03/18/19 05:17 Dose: 5,000 units Lactated Ringer's (Lactated Ringers 1000 Ml Bag*) 1,000 mls @ 100 mls/hr IV PER RATE [facility] Last Admin: 03/17/19 16:20 Dose: 100 mls/hr Ceftriaxone Sodium 1 gm/ (Sodium Chloride) 50 mls @ 200 mls/hr IVPB Q24H [facility] Last Admin: 03/18/19 08:30 Dose: 200 mls/hr Nystatin (Nystatin Oint*) 1 applic TOPICAL TID [facility] Last Admin: 03/18/19 08:30 Dose: 1 applic Ondansetron HCl (Zofran Inj*) 4 mg IV Q4H PRN PRN Reason: NAUSEA/VOMITING Polyvinyl Alcohol (Polyvinyl Alcohol 1.4% Opth*) 2 drop BOTH EYES BEDTIME PRN PRN Reason: DRY EYE Tamsulosin HCl (Flomax Cap*) 0.4 mg PO BEDTIME [facility] Last Admin: 03/17/19 20:57 Dose: 0.4 mg Trazodone HCl (Desyrel Tab*) 25 mg PO BEDTIME PRN PRN Reason: INSOMNIA Vital Signs - 8 hr 03/18/19 03/18/19 03/18/19 03:51 08:00 08:26 Temperature 98.0 F 97.5 F Pulse Rate 63 49 56 Respiratory 19 16 Rate Blood Pressure 112/62 125/50 (mmHg) O2 Sat by Pulse 97 96 Oximetry 03/18/19 08:49 Temperature Pulse Rate Respiratory 16 Rate Blood Pressure (mmHg) O2 Sat by Pulse 96 Oximetry Oxygen Devices in Use Now: None Appearance: 83 yo male laying in bed A+O to self & place in NAD Eyes: PERRLA Ears/Nose/Mouth/Throat: Mucous Membranes Moist Respiratory: Symmetrical Chest Expansion and Respiratory Effort, Clear to Auscultation Cardiovascular: NL Sounds; No Murmurs; No JVD, RRR, No Edema Abdominal: NL Sounds; No Tenderness; No Distention Extremities: No Edema, No Clubbing, Cyanosis Neurological: NL Sensation, - - A+O in NAD Lines/Tubes/Other Access: Clean, Dry and Intact Peripheral IV Result Diagrams: 03/18/19 05:49 03/18/19 05:49 Microbiology and Other Data: Microbiology 03/17/19 02:30 Urine Culture - Preliminary Urine Proteus Mirabilis 03/17/19 02:44 Aerobic Blood Culture - Preliminary Blood Venous No Growth Day 1 Anaerobic Blood Culture - Preliminary No Growth Day 1 03/17/19 02:36 Aerobic Blood Culture - Preliminary Blood Venous No Growth Day 1 Anaerobic Blood Culture - Preliminary No Growth Day 1 03/17/19 09:05 Nasal Screen MRSA (PCR) - Final Nasal Mrsa Detected Assess/Plan/Problems-Billing Assessment: Mr. Myles is an 83 yo M with PMH of FTT, HLD, RA, BPH, and depression; who resides at [facility] presented to the ED with AMS and was found to have a likely UTI. - Patient Problems (1) UTI (urinary tract infection) Comment: - Catheter-related, present on admission; new catheter placed in the ED - Based on UA; urine culture pending - López previously placed at [facility] d/t nonhealing scrotal wounds - Continue ceftriaxone - Blood cx NGTD (2) Altered mental status Comment: - appears to be improving - Secondary to UTI - Baseline mental status not clear (3) Scrotal lesion Comment: - Erythema, edema, and dry lesions noted - Suspect yeast and/or impetigo - Received Diflucan x1 on admission - Continue nystatin (4) BPH (benign prostatic hyperplasia) Comment: - Continue tamsulosin (5) DVT prophylaxis Comment: - Heparin SQ (6) Full code status Comment: Status and Disposition: Inpatient. Anticipate d/c back to [facility] when medically stable, possible tomorrow.
[2019-03-18] MEDS: Lactated Ringers 1000 ML Bag* 1,000 ML IV SCH (14:04)
[2019-03-18] MEDS: Tamsulosin CAP* 0.4 MG PO SCH (21:22)
[2019-03-19] MEDS: Lactated Ringers 1000 ML Bag* 1,000 ML IV SCH (00:16)
[2019-03-19] MEDS: Heparin VIAL(*) 5000 UNITS/ML VIAL (FIVE THOUSAND) SUBCUT SCH (05:49)
--- NOTE | 2019-03-19 09:06 | DCNOTE ---
Subjective Date of Service: 03/19/19 Interval History: pt reports he feels well this morning. He is A+O to self and place sitting up in bed watching flipping through the TV channels. Denies pain. reports appetite is "okay". No fever or chills. Family History: Unchanged from Admission Social History: Unchanged from Admission Past Medical History: Unchanged from Admission Objective Active Medications: Albuterol (Ventolin 2.5 Mg/3 Ml Neb.Maria Elena*) 2.5 mg INH Q6H PRN PRN Reason: SOB/WHEEZING Albuterol/Ipratropium (Duoneb (Albuterol 2.5 Mg/Ipratropium 0.5 Mg)) 1 neb INH [id number] AWAKE PRN PRN Reason: sob/wheexing Heparin Sodium (Porcine) (Heparin Vial(*)) 5,000 units SUBCUT Q8HR [facility] Last Admin: 03/19/19 05:49 Dose: 5,000 units Ceftriaxone Sodium 1 gm/ (Sodium Chloride) 50 mls @ 200 mls/hr IVPB Q24H [facility] Last Admin: 03/18/19 08:30 Dose: 200 mls/hr Nystatin (Nystatin Oint*) 1 applic TOPICAL TID [facility] Last Admin: 03/18/19 21:25 Dose: 1 applic Ondansetron HCl (Zofran Inj*) 4 mg IV Q4H PRN PRN Reason: NAUSEA/VOMITING Polyvinyl Alcohol (Polyvinyl Alcohol 1.4% Opth*) 2 drop BOTH EYES BEDTIME PRN PRN Reason: DRY EYE Tamsulosin HCl (Flomax Cap*) 0.4 mg PO BEDTIME [facility] Last Admin: 03/18/19 21:22 Dose: 0.4 mg Trazodone HCl (Desyrel Tab*) 25 mg PO BEDTIME PRN PRN Reason: INSOMNIA Vital Signs - 8 hr 03/19/19 03:41 Temperature 97.4 F Pulse Rate 52 Respiratory 20 Rate Blood Pressure 135/59 (mmHg) O2 Sat by Pulse 100 Oximetry Oxygen Devices in Use Now: None Appearance: A+O to self and place in NAD Eyes: No Scleral Icterus, PERRLA Respiratory: Symmetrical Chest Expansion and Respiratory Effort, Clear to Auscultation Cardiovascular: NL Sounds; No Murmurs; No JVD, RRR, No Edema Abdominal: NL Sounds; No Tenderness; No Distention Neurological: NL Sensation, - - alert Lines/Tubes/Other Access: Clean, Dry and Intact Peripheral IV Nutrition: Taking PO's Result Diagrams: 03/18/19 05:49 03/18/19 05:49 Microbiology and Other Data: Microbiology 03/17/19 02:30 Urine Culture - Preliminary Urine Proteus Mirabilis 03/17/19 02:44 Aerobic Blood Culture - Preliminary Blood Venous No Growth Day 1 Anaerobic Blood Culture - Preliminary No Growth Day 1 03/17/19 02:36 Aerobic Blood Culture - Preliminary Blood Venous No Growth Day 1 Anaerobic Blood Culture - Preliminary No Growth Day 1 03/17/19 09:05 Nasal Screen MRSA (PCR) - Final Nasal Mrsa Detected Assess/Plan/Problems-Billing Assessment: Mr. Myles is an 83 yo M with PMH of FTT, HLD, RA, BPH, and depression; who resides at [facility] presented to the ED with AMS and was found to have a likely UTI. - Patient Problems (1) UTI (urinary tract infection) Comment: - Catheter-related, present on admission; new catheter placed in the ED - Based on UA; urine culture growing Proteus M. sensistive to cephlosporins - López previously placed at [facility] d/t nonhealing scrotal wounds - Continue ceftriaxone -> DC on Ceftin - Blood cx NGTD (2) Altered mental status Comment: - Resolved suspect secondary to UTI (3) Scrotal lesion Comment: - Erythema, edema, and dry lesions noted - improving with treatment - Suspect yeast - Received Diflucan x1 on admission - Continue nystatin (4) BPH (benign prostatic hyperplasia) Comment: - Continue tamsulosin (5) DVT prophylaxis Comment: - Heparin SQ (6) Full code status Comment: Status and Disposition: Inpatient. d/c back to [facility] today
[2019-03-19] MEDS: cefTRIAXone(*) 1 GM in NS 0.9% 50 ML* 50 ML IVPB SCH (09:23)
[2019-03-19] MEDS: Nystatin OINT* 15 GM TOPICAL SCH (09:23)
--- NOTE | 2019-03-19 11:02 | DS ---
Amended report to enter co-signing physician. DISCHARGE SUMMARY: DATE OF ADMISSION: 03/17/19 DATE OF DISCHARGE: 03/19/19 ATTENDING PHYSICIAN: Dr. Cabezas* (dictated by Catrachita Camarena, DUC). PRIMARY CARE PROVIDER: [facility] physician, Dr. Ferrell. DISCHARGE DIAGNOSES: 1. Altered mental status secondary to urinary tract infection. 2. Urinary tract infection with indwelling López catheter. 3. Scrotal lesion, suspect yeast with secondary impetigo lesion over his scrotum. SECONDARY DIAGNOSES: 1. Failure to thrive. 2. Constipation. 3. Hyperlipidemia. 4. General muscle weakness. 5. History of pathological fracture. 6. Rheumatoid arthritis. 7. Benign prostatic hypertrophy. 8. Major depressive disorder. 9. Wheelchair bound. 10. Vitamin D deficiency. DISCHARGE MEDICATIONS: 1. Trazodone 25 mg p.o. at bedtime p.r.n. 2. Flomax 0.4 mg p.o. at bedtime. 3. Robitussin 5 mg p.o. q.4 hours p.r.n. 4. Senna-S 2 tablets p.o. b.i.d. p.r.n. 5. Milk of magnesia 30 mL p.o. q.3 days p.r.n. 6. Vitamin D 50,000 units p.o. monthly. 7. Artificial tears 1.4% ophthalmic 2 drops both eyes at bedtime p.r.n. 8. Albuterol 2.5 mg/3 mL INH q.6 hours p.r.n. shortness of breath or wheezing. 9. Acetaminophen extra strength 500 mg p.o. q.4 hours p.r.n. New Medications: 1. Ceftin 250 mg p.o. b.i.d. x5 days. 2. Nystatin 1 application topical t.i.d. x14 days. Medications Discontinued: Oxycodone 5/325 mg p.o. b.i.d. p.r.n. ALLERGIES: SULFA. CODE STATUS: Full code. HISTORY OF PRESENT ILLNESS AND HOSPITAL COURSE: Please see history and physical by Dr. Adames for full admission details, but in summary this is an 83- year-old male with a past medical history as stated above who presented to the emergency department from [facility] for concern for altered mental status. The patient recently had a López placed for concern of issues with a scrotal wound and being incontinent of urine. The patient was noted to begin pulling on his López and he pulled it out and began hallucinating and was found to have low-grade temp of 99. Decision was made to send him to the emergency department for further evaluation. López catheter was replaced in the emergency department and on admission he was noted to be confused during evaluation. In the emergency department, the patient had no leukocytosis. CRP of 10.40. Other labs being fairly unremarkable. His urinalysis did appear to be positive for urinary tract infection. The patient has a history of Proteus mirabilis UTIs in the past. His urine culture did grow Proteus mirabilis, which is sensitive to cephalosporins. He additionally was started on ceftriaxone and has received this for 2 days and on discharge will be sent home on Ceftin. His blood cultures are negative. The patient's confusion has resolved and the patient was found to be alert and oriented to self and place. Answers questions appropriately, following commands. He does appear to have some mild cognitive decline and I suspect that this is his baseline. The patient has remained hemodynamically stable throughout hospitalization as well as afebrile. The patient's oxycodone was discontinued. On admission, he has not required oxycodone p.r.n. and has denied pain on his assessments. This will be discontinued on discharge. In regards to the patient's scrotal lesion, he was given Diflucan and started on nystatin ointment as well as ceftriaxone to cover for a possible impetigo lesion. The patient was stable for discharge back to [facility] today. Per the nursing staff, they have no concerns. DISCHARGE PLAN: 1. Discharge back to [facility]. 2. Follow up with Dr. Ferrell. 3. Consider wound consult for scrotal lesion. Please monitor this daily and notify the provider if there are any significant changes. 4. Change López in 4 weeks. 5. Condition at Discharge: stable TIME SPENT: Approximately 60 minutes were spent on this discharge. CATRACHITA CAMARENA NP [id number]/[facility] #: [id number] [facility]
[2019-03-19 13:10] VITALS: BP 130/69
== END 2019-03-19 12:30 | DRG 699 ==
LOC: ED 01:59 → MED 04:14
PROVIDERS: ADMIT Pediatrics; ATTEND Internal Medicine
PROC: 0T2BX0Z Change Drainage Device in Bladder, External Approach (ICD-10-PCS; principal; 2019-03-17)
DX: T83.511A Infection and inflammatory reaction due to indwelling urethral catheter, initial encounter (principal); B37.49 Other urogenital candidiasis; Y73.1 Therapeutic (nonsurgical) and rehabilitative gastroenterology and urology devices associated with adverse incidents; N39.0 Urinary tract infection, site not specified; J30.2 Other seasonal allergic rhinitis; N40.0 Benign prostatic hyperplasia without lower urinary tract symptoms; M19.90 Unspecified osteoarthritis, unspecified site; H91.90 Unspecified hearing loss, unspecified ear; L01.09 Other impetigo; E78.5 Hyperlipidemia, unspecified; R40.0 Somnolence; M06.9 Rheumatoid arthritis, unspecified; F32.9 Major depressive disorder, single episode, unspecified; M62.81 Muscle weakness (generalized); K59.00 Constipation, unspecified; E55.9 Vitamin D deficiency, unspecified; R32 Unspecified urinary incontinence; R62.7 Adult failure to thrive; Z68.22 Body mass index [BMI] 22.0-22.9, adult; Z99.3 Dependence on wheelchair; Z97.4 Presence of external hearing-aid; Y92.9 Unspecified place or not applicable; Z88.2 Allergy status to sulfonamides; Z90.49 Acquired absence of other specified parts of digestive tract
CPT/HCPCS: 36415; 36600; 70450; 71045; 80048; 80053; 81003; 81015; 82803; 83605; 83880; 84484; 85025; 85610; 85730; 86140; 87040; 87077; 87086; 87186; 87641; 99284; A9270-GY; J0696; J1644; J2543

== ENCOUNTER 2019-03-22 21:55 | Emergency (ER) | payer MEDICARE, OTHER ==
[2019-03-22] MEDS ORDERED: NS 0.9% 1000 ML** 1,000 ML IV ONE (22:39)
[2019-03-22 23:17] LABS: ABS Eosinophils 0.7 10^3/ul (0-0.6); ABS Lymphocytes 0.5 10^3/ul (1.0-4.8); ABS Monocytes 0.9 10^3/ul (0-0.8); ABS Neutrophils 7.3 10^3/ul (1.5-7.7); Eosinophil % 7.3 %; Hematocrit 46 % (42-52); Hemoglobin 15.4 g/dL (14.0-18.0); Lymphocyte % 5.7 %; Mean Corpuscular HGB Conc 34 g/dL (31-36); Mean Corpuscular Hemoglobin 34 pg (27-31); Mean Corpuscular Volume 99 fL (80-94); Mean Platelet Volume 8.4 fL (7.4-10.4); Platelet Count 221 10^3/uL (150-450); Red Blood Count 4.61 10^6 /uL (4.18-5.48); Red Cell Distribution Width 13 % (10-15); White Blood Count 9.4 10^3/uL (3.5-10.8)
[2019-03-22 23:27] LABS: Activated Partial Thrombo Time 40.1 seconds (26.0-38.0); INR 1.03 (0.82-1.09)
[2019-03-22 23:35] LABS: Albumin 3.6 g/dL (3.2-5.2); Albumin/Globulin Ratio 1.1 (1-3); C Reactive Protein 14.52 mg/L (<8.01); Calcium 8.7 mg/dL (8.6-10.3); EGFR African American 124.5 (>60); EGFR Non-African American 102.9 (>60); Globulin 3.4 g/dL (2-4); Potassium 4.3 mmol/L (3.5-5.0); Total Bilirubin 0.4 mg/dL (0.2-1.0)
[2019-03-22 23:57] LABS: Urine Appearance Clear; Urine Bilirubin Negative (Negative); Urine Blood Negative (Negative); Urine Color Yellow; Urine Glucose Negative (Negative); Urine Ketones Negative (Negative); Urine Nitrite Negative (Negative); Urine Protein Negative (Negative); Urine Specific Gravity 1.019 (1.010-1.030); Urine Urobilinogen Negative (Negative)
--- NOTE | 2019-03-23 00:35 | ED ---
Altered Mental Status - HPI Summary HPI Summary: This patient is a 83 year old M presenting to [facility] EMS from [facility] with a chief complaint of fever and AMS. prison reported a temp of 99 F. In the room pt denied any pain. Pt had just finished a course of antibiotics . It is reported that the pt has been experiencing visual hallucinations specifically seeing people running around - History Of Current Complaint Chief Complaint: EDFever Stated Complaint: FEVER/HALLUCINATIONS PER EMS Time Seen by Provider: 03/22/19 22:26 Hx Obtained From: Patient Onset/Duration: Still Present Timing: Constant Aggravating Factor(s): Nothing Alleviating Factor(s): Nothing Associated Signs And Symptoms: Positive: Fever - Allergies/Home Medications Allergies/Adverse Reactions: Allergies Allergy/AdvReac Type Severity Reaction Status Date / Time Sulfa (Sulfonamide Allergy Unknown Verified 03/22/19 22:20 Antibiotics) Reaction Details PMH/Surg Hx/FS Hx/Imm Hx Endocrine/Hematology History: Reports: Hx Anemia Denies: Hx Diabetes Cardiovascular History: Denies: Hx Congestive Heart Failure, Hx Hypertension Respiratory History: Reports: Hx Seasonal Allergies GI History: Reports: Hx Gall Bladder Disease History: Reports: Hx Benign Prostatic Hyperplasia Musculoskeletal History: Reports: Hx Arthritis Sensory History: Reports: Hx Contacts or Glasses, Hx Hearing Problem Denies: Hx Hearing Aid Opthamlomology History: Reports: Hx Contacts or Glasses - Surgical History Surgery Procedure, Year, and Place: - 2002 (approx). 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 GENERAL: Patient is a well-developed and nourished male who is lying comfortable in the stretcher. Patient is not in any acute respiratory distress. HEAD AND FACE: No signs of trauma. No ecchymosis, hematomas or skull depressions. No sinus tenderness. EYES: PERRLA, EOMI x 2, No injected conjunctiva, no nystagmus. EARS: Hearing grossly intact. Ear canals and tympanic membranes are within normal limits. MOUTH: Oropharynx within normal limits. NECK: Supple, trachea is midline, no adenopathy, no JVD, no carotid bruit, no c- spine tenderness, neck with full ROM CHEST: Symmetric, no tenderness at palpation LUNGS: Decreased breath sounds bilaterally. No wheezing or crackles. CVS: Regular rate and rhythm, S1 and S2 present, no murmurs or gallops appreciated. ABDOMEN: Soft, non-tender. No signs of distention. No rebound no guarding, and no masses palpated. Bowel sounds are normal. EXTREMITIES: FROM in all major joints, no edema, no cyanosis or clubbing. NEURO: Alert and oriented x2, follows commands. Neuro exam is grossly non-focal SKIN: Dry and warm Triage Information Reviewed: Yes Vital Signs On Initial Exam: Initial Vitals Temp Pulse Resp BP Pulse Ox 98.9 F 60 18 136/76 95 03/22/19 22:00 03/22/19 22:00 03/22/19 22:00 03/22/19 22:00 03/22/19 22:00 Vital Signs Reviewed: Yes Diagnostics - Vital Signs Vital Signs Temp Pulse Resp BP Pulse Ox 03/22/19 22:13 56 137/85 94 03/22/19 22:00 98.9 F 60 18 136/76 95 - Laboratory Lab Results: Lab Results 03/22/19 03/22/19 03/22/19 Range/Units 23:02 23:02 23:02 WBC 9.4 (3.5-10.8) 10^3/uL RBC 4.61 (4.18-5.48) 10^6 /uL Hgb 15.4 (14.0-18.0) g/dL Hct 46 (42-52) % MCV 99 H (80-94) fL MCH 34 H (27-31) pg MCHC 34 (31-36) g/dL RDW 13 (10-15) % Plt Count 221 (150-450) 10^3/uL MPV 8.4 (7.4-10.4) fL Neut % (Auto) 77.4 % Lymph % (Auto) 5.7 % Becker % (Auto) 9.3 % Eos % (Auto) 7.3 % Baso % (Auto) 0.3 % Absolute Neuts (auto) 7.3 (1.5-7.7) 10^3/ul Absolute Lymphs (auto) 0.5 L (1.0-4.8) 10^3/ul Absolute Monos (auto) 0.9 H (0-0.8) 10^3/ul Absolute Eos (auto) 0.7 H (0-0.6) 10^3/ul Absolute Basos (auto) 0.0 (0-0.2) 10^3/ul Absolute Nucleated RBC 0.0 10^3/ul Nucleated RBC % 0.0 INR (Anticoag Therapy) 1.03 (0.82-1.09) APTT 40.1 H (26.0-38.0) seconds Sodium 138 (135-145) mmol/L Potassium 4.3 (3.5-5.0) mmol/L Chloride 103 (101-111) mmol/L Carbon Dioxide 31 (22-32) mmol/L Anion Gap 4 (2-11) mmol/L BUN 19 (6-24) mg/dL Creatinine 0.73 (0.67-1.17) mg/dL Est GFR ( Amer) 124.5 (>60) Est GFR (Non-Af Amer) 102.9 (>60) BUN/Creatinine Ratio 26.0 H (8-20) Glucose 118 H (70-100) mg/dL Lactic Acid (0.5-2.0) mmol/L Calcium 8.7 (8.6-10.3) mg/dL Total Bilirubin 0.40 (0.2-1.0) mg/dL AST 17 (13-39) U/L ALT 23 (7-52) U/L Alkaline Phosphatase 94 (34-104) U/L Troponin I 0.00 (<0.04) ng/mL C-Reactive Protein 14.52 H (<8.01) mg/L Total Protein 7.0 (6.4-8.9) g/dL Albumin 3.6 (3.2-5.2) g/dL Globulin 3.4 (2-4) g/dL Albumin/Globulin Ratio 1.1 (1-3) Urine Color Urine Appearance Urine pH (5-9) Ur Specific [place] (1.010-1.030) Urine Protein (Negative) Urine Ketones (Negative) Urine Blood (Negative) Urine Nitrate (Negative) Urine Bilirubin (Negative) Urine Urobilinogen (Negative) Ur Leukocyte Esterase (Negative) Urine Glucose (Negative) Urine Ascorbic Acid (Negative) 03/22/19 03/22/19 Range/Units 23:02 23:51 WBC (3.5-10.8) 10^3/uL RBC (4.18-5.48) 10^6 /uL Hgb (14.0-18.0) g/dL Hct (42-52) % MCV (80-94) fL MCH (27-31) pg MCHC (31-36) g/dL RDW (10-15) % Plt Count (150-450) 10^3/uL MPV (7.4-10.4) fL Neut % (Auto) % Lymph % (Auto) % Becker % (Auto) % Eos % (Auto) % Baso % (Auto) % Absolute Neuts (auto) (1.5-7.7) 10^3/ul Absolute Lymphs (auto) (1.0-4.8) 10^3/ul Absolute Monos (auto) (0-0.8) 10^3/ul Absolute Eos (auto) (0-0.6) 10^3/ul Absolute Basos (auto) (0-0.2) 10^3/ul Absolute Nucleated RBC 10^3/ul Nucleated RBC % INR (Anticoag Therapy) (0.82-1.09) APTT (26.0-38.0) seconds Sodium (135-145) mmol/L Potassium (3.5-5.0) mmol/L Chloride (101-111) mmol/L Carbon Dioxide (22-32) mmol/L Anion Gap (2-11) mmol/L BUN (6-24) mg/dL Creatinine (0.67-1.17) mg/dL Est GFR ( Amer) (>60) Est GFR (Non-Af Amer) (>60) BUN/Creatinine Ratio (8-20) Glucose (70-100) mg/dL Lactic Acid 1.3 (0.5-2.0) mmol/L Calcium (8.6-10.3) mg/dL Total Bilirubin (0.2-1.0) mg/dL AST (13-39) U/L ALT (7-52) U/L Alkaline Phosphatase (34-104) U/L Troponin I (<0.04) ng/mL C-Reactive Protein (<8.01) mg/L Total Protein (6.4-8.9) g/dL Albumin (3.2-5.2) g/dL Globulin (2-4) g/dL Albumin/Globulin Ratio (1-3) Urine Color Yellow Urine Appearance Clear Urine pH 8.0 (5-9) Ur Specific [place] 1.019 (1.010-1.030) Urine Protein Negative (Negative) Urine Ketones Negative (Negative) Urine Blood Negative (Negative) Urine Nitrate Negative (Negative) Urine Bilirubin Negative (Negative) Urine Urobilinogen Negative (Negative) Ur Leukocyte Esterase Negative (Negative) Urine Glucose Negative (Negative) Urine Ascorbic Acid * A (Negative) Result Diagrams: 03/22/19 23:02 03/22/19 23:02 Lab Statement: Any lab studies that have been ordered have been reviewed, and results considered in the medical decision making process. - Radiology CXR Radiology Interpretation Completed By: ED Physician Summary of Radiographic Findings: CXR reveals decreased lung volume and no acute infiltrate, pending offical report. Altered Mental Statu Course/Dx - Course Course Of Treatment: This patient is a 83 year old M presenting to [facility] vis EMS from [facility] with a chief complaint of fever and AMS. prison reported a temp of 99 F. In the room pt denied any pain. Pt had just finished a course of antibiotics 03/22/19. It is reported that the pt has been experiencing visual hallucinations specifically seeing people running around. Blood work obtained. The abnormal findings include MCV 99, MCH 34, Absolute Lymphs (auto) 0.5 L, Absolute Monos (auto) 0.9, Absolute Eos (auto) 0.7, APTT 40.1, BUN/ Creatinine Ratio 26.0, Glucose 118, C-Reactive Protein 14.52. Urine Analysis obtained. The abnormal findings include urine ascorbic acid positive. CXR reveals decreased lung volume and no acute infiltrate. During ED course pt received fluids. Pt was discharged to long-term. - Diagnoses Provider Diagnoses: Altered mental status Discharge - Sign-Out/Discharge Documenting (check all that apply): Patient Departure - Discharge Patient Received Moderate/Deep Sedation with Procedure: No - Discharge Plan Condition: Stable Disposition: HOME Patient Education Materials: Altered Mental Status (ED) Referrals: Marcelle Carpio MD [Primary Care Provider] - 3 Days Additional Instructions: Follow up with primary care physician within 3 days. Please return to the ED immediately for worsening or concerning symptoms. - Attestation Statements Document Initiated by Scribe: Yes Documenting Scribe: ANDERS MEZA Provider For Whom Scribe is Documenting (Include Credential): THIERNO JENNINGS MD Scribe Attestation: IANDERS, scribed for THIERNO JENNINGS MD on 03/23/19 at 0346. Status of Scribe Document: Ready
[2019-03-23 00:51] VITALS: BP 139/86
== END 2019-03-23 00:50 | disposition home or self-care (01) ==
LOC: ED 21:55
DX: R41.82 Altered mental status, unspecified (principal); R44.3 Hallucinations, unspecified; R50.9 Fever, unspecified; Z88.2 Allergy status to sulfonamides; Z79.899 Other long term (current) drug therapy; N40.0 Benign prostatic hyperplasia without lower urinary tract symptoms
CPT/HCPCS: 36415; 71045; 80053; 81003; 83605; 84484; 85025; 85610; 85730; 86140; 87040; 96360; 96361; 99282

== ENCOUNTER 2019-04-08 02:30 | Emergency (ER) | payer MEDICARE, OTHER ==
--- NOTE | 2019-04-08 02:44 | ED ---
Altered Mental Status - HPI Summary HPI Summary: An 83 y/o male brought in by [facility] ambulance presents to [facility] with a chief complaint of AMS today. Per EMS, the patient was found throwing food all over his room at [facility]. He denies SOB or nausea. He denies any pain, rating his pain as a 0/10 in severity. The patient has a Hx of dementia. He says that he feels a little off but doesn't know how. This is a level V caveat due to baseline dementia and poor it increased in confusion. - History Of Current Complaint Chief Complaint: EDAltMentalStatus Stated Complaint: AMS PER EMT Hx Obtained From: Patient, EMS Onset/Duration: Suddenly Timing: Lasting Hours Severity Initially: Mild Severity Currently: Mild Character: Confusion Aggravating Factor(s): Other - nothing Alleviating Factor(s): Other - nothing Associated Signs And Symptoms: Negative: Fever - Allergies/Home Medications Allergies/Adverse Reactions: Allergies Allergy/AdvReac Type Severity Reaction Status Date / Time Sulfa (Sulfonamide Allergy Unknown Verified 03/22/19 22:20 Antibiotics) Reaction Details PMH/Surg Hx/FS Hx/Imm Hx Endocrine/Hematology History: Reports: Hx Anemia Denies: Hx Diabetes Cardiovascular History: Denies: Hx Congestive Heart Failure, Hx Hypertension Respiratory History: Reports: Hx Seasonal Allergies GI History: Reports: Hx Gall Bladder Disease History: Reports: Hx Benign Prostatic Hyperplasia Musculoskeletal History: Reports: Hx Arthritis Sensory History: Reports: Hx Contacts or Glasses, Hx Hearing Problem Denies: Hx Hearing Aid Opthamlomology History: Reports: Hx Contacts or Glasses - Surgical History Surgery Procedure, Year, and Place: - 2002 (approx). hernia repair Hx Anesthesia Reactions: No - Immunization History Date of Tetanus Vaccine: PT STATES UNSURE Date of Influenza Vaccine: PT STATES UNSURE Infectious Disease History: No Infectious Disease History: Reports: Hx Hepatitis - about 1965, Hx of Known/ Suspected MRSA Denies: Traveled Outside the [place] in Last 30 Days - Family History Known Family History: Positive: Unknown - Unable to acquire information from pt. Negative: Blood Disorder - Social History Alcohol Use: None Hx Substance Use: No Substance Use Type: Reports: None Hx Tobacco Use: No Smoking Status (MU): Never Smoked Tobacco Review of Systems Negative: Fever Neurological: Other - positive: AMS All Other Systems Reviewed And Are Negative: Yes Physical Exam - Summary Physical Exam Summary: Appearance: elderly, chronically ill-appearing man in no acute distress, vital signs unremarkable Skin: Warm, dry, no obvious rash Eyes: sclera anicteric, no conjunctival pallor ENT: mucous membranes moist, pharynx appears normal Neck: Supple, nontender Respiratory: Clear to auscultation, no signs of respiratory distress Cardiovascular: Normal S1, S2. No murmurs. Normal distal pulses in tibial and radial bilaterally. Abdomen: Soft, nontender, normal active bowel sounds present Musculoskeletal: Normal, Strength/ROM Intact Neurological: awake and alert, disoriented to place and time, he answers simple questions appropriately Psychiatric: affect is normal, does not appear anxious or depressed Triage Information Reviewed: Yes Vital Signs On Initial Exam: Initial Vitals Temp Pulse Resp BP Pulse Ox 98.1 F 58 18 119/78 96 04/08/19 02:32 04/08/19 02:32 04/08/19 02:32 04/08/19 02:32 04/08/19 02:32 Vital Signs Reviewed: Yes - [place] Coma Scale Best Eye Response: 4 - Spontaneous Best Motor Response: 6 - Obeys Commands Best Verbal Response: 5 - Oriented Coma Scale Total: 15 Diagnostics - Vital Signs Vital Signs Temp Pulse Resp BP Pulse Ox 04/08/19 02:32 98.1 F 58 18 119/78 96 - Laboratory Result Diagrams: 04/08/19 02:53 04/08/19 02:53 Lab Statement: Any lab studies that have been ordered have been reviewed, and results considered in the medical decision making process. - CT Brain CT Interpretation Completed By: Radiologist Summary of CT Findings: No acute intracranial abnormalities. ED physician has reviewed this imaging report. Altered Mental Statu Course/Dx - Course Course Of Treatment: An 83 y/o male brought in by [facility] ambulance presents to [facility] with a chief complaint of AMS today. Per EMS, the patient was found throwing food all over his room at [facility]. The physical exam revealed that the patient is an elderly, chronically ill-appearing man in no acute distress who is awake and alert, disoriented to place and time, he answers simple questions appropriately. GCS: 15. Brain CT impression: No acute intracranial abnormalities. In the ED course the patient was given Ceftriaxone IVPB. Blood work, chemistries and UA obtained. Urine protein 1+, Urine Blood 1+ , Ur Leukocyte Esterase 3+, Urine WBC 3+, Urine RBC 3+, Urine yeast present at 02:45. The patient will be discharged with a prescription for Keflex and follow up with his PCP. The patient is agreeable with this plan. - Diagnoses Provider Diagnoses: UTI (urinary tract infection) Discharge - Sign-Out/Discharge Documenting (check all that apply): Patient Departure - DC Patient Received Moderate/Deep Sedation with Procedure: No - Discharge Plan Condition: Good Disposition: HOME Prescriptions: Cephalexin CAP* [Keflex CAP*] 500 mg PO QID #28 cap Patient Education Materials: Urinary Tract Infection in Older Adults (ED) Referrals: Marcelle Carpio MD [Primary Care Provider] - 3 Days (if not improving) - Billing Disposition and Condition Condition: GOOD Disposition: Home - Attestation Statements Document Initiated by Ana: Yes Documenting Scribe: Shlomo Nunes Provider For Whom Ana is Documenting (Include Credential): Kalpesh Reed MD Scribe Attestation: Shlomo Gomez scribed for Kalpesh Reed MD on 04/08/19 at 0605. Scribe Documentation Reviewed: Yes Provider Attestation: The documentation as recorded by the Shlomo romeo accurately reflects the service I personally performed and the decisions made by Kalpesh martin MD Status of Scribe Document: Viewed
[2019-04-08 03:00] LABS: ABS Basophils 0.1 10^3/ul (0-0.2); ABS Eosinophils 0.3 10^3/ul (0-0.6); ABS Lymphocytes 0.5 10^3/ul (1.0-4.8); ABS Monocytes 1.1 10^3/ul (0-0.8); ABS Neutrophils 5.5 10^3/ul (1.5-7.7); Eosinophil % 4.2 %; Hematocrit 44 % (42-52); Hemoglobin 14.9 g/dL (14.0-18.0); Lymphocyte % 7.1 %; Mean Corpuscular HGB Conc 34 g/dL (31-36); Mean Corpuscular Hemoglobin 33 pg (27-31); Mean Corpuscular Volume 98 fL (80-94); Mean Platelet Volume 7.9 fL (7.4-10.4); Nucleated Red Blood Cells % 0.1; Platelet Count 211 10^3/uL (150-450); Red Blood Count 4.49 10^6 /uL (4.18-5.48); Red Cell Distribution Width 13 % (10-15); White Blood Count 7.5 10^3/uL (3.5-10.8)
[2019-04-08 03:17] LABS: Albumin 3.5 g/dL (3.2-5.2); Albumin/Globulin Ratio 1.1 (1-3); BUN/Creatinine Ratio 35.3 (8-20); Calcium 8.8 mg/dL (8.6-10.3); EGFR African American 135.1 (>60); EGFR Non-African American 111.6 (>60); Globulin 3.2 g/dL (2-4); Potassium 4.2 mmol/L (3.5-5.0); Total Bilirubin 0.4 mg/dL (0.2-1.0); Total Protein 6.7 g/dL (6.4-8.9)
[2019-04-08 03:31] LABS: Urine Appearance Cloudy; Urine Bacteria Absent (Absent); Urine Bilirubin Negative (Negative); Urine Blood 1+ (Negative); Urine Color Yellow; Urine Glucose Negative (Negative); Urine Ketones Negative (Negative); Urine Nitrite Negative (Negative); Urine Protein 1+(30 mg/dL) (Negative); Urine Red Blood Cell 3+(>10/hpf) (Absent); Urine Specific Gravity 1.014 (1.010-1.030); Urine Urobilinogen Negative (Negative); Urine White Blood Cell 3+(>20/hpf) (Absent)
[2019-04-08] MEDS ORDERED: cefTRIAXone(*) 1 GM in NS 0.9% 50 ML* 50 ML IVPB ONE (03:47)
[2019-04-08 04:42] VITALS: BP 121/76
--- NOTE | 2019-04-10 18:29 | ED ---
Progress - Progress Note Progress Note: Patient's preliminary urine culture reveals greater than 100,000 Proteus Mirabella's. Patient was started on Keflex. Final cultures pending. Course/Dx - Course Course Of Treatment: An 83 y/o male brought in by [facility] ambulance presents to [facility] with a chief complaint of AMS today. Per EMS, the patient was found throwing food all over his room at [facility]. The physical exam revealed that the patient is an elderly, chronically ill-appearing man in no acute distress who is awake and alert, disoriented to place and time, he answers simple questions appropriately. GCS: 15. Brain CT impression: No acute intracranial abnormalities. In the ED course the patient was given Ceftriaxone IVPB. Blood work, chemistries and UA obtained. Urine protein 1+, Urine Blood 1+ , Ur Leukocyte Esterase 3+, Urine WBC 3+, Urine RBC 3+, Urine yeast present at 02:45. The patient will be discharged with a prescription for Keflex and follow up with his PCP. The patient is agreeable with this plan. - Diagnoses Provider Diagnoses: UTI (urinary tract infection) Discharge - Sign-Out/Discharge Documenting (check all that apply): Post-Discharge Follow Up Patient Received Moderate/Deep Sedation with Procedure: No - Discharge Plan Condition: Good Disposition: HOME Prescriptions: Cephalexin CAP* [Keflex CAP*] 500 mg PO QID #28 cap Patient Education Materials: Urinary Tract Infection in Older Adults (ED) Referrals: Marcelle Carpio MD [Primary Care Provider] - 3 Days (if not improving) - Billing Disposition and Condition Condition: GOOD Disposition: Home
== END 2019-04-08 04:40 | disposition home or self-care (01) ==
LOC: ED 02:30
DX: N39.0 Urinary tract infection, site not specified (principal); B96.4 Proteus (mirabilis) (morganii) as the cause of diseases classified elsewhere; F03.90 Unspecified dementia, unspecified severity, without behavioral disturbance, psychotic disturbance, mood disturbance, and anxiety; Z86.14 Personal history of Methicillin resistant Staphylococcus aureus infection; Z88.2 Allergy status to sulfonamides
CPT/HCPCS: 36415; 70450; 80053; 81003; 81015; 83605; 84484; 85025; 87077; 87086; 87186; 96374; 99284; J0696

== ENCOUNTER 2019-08-01 02:49 | Emergency (ER) | payer MEDICARE, OTHER ==
--- NOTE | 2019-08-01 03:11 | ED ---
Altered Mental Status - HPI Summary HPI Summary: LEVEL 5 CAVEAT: HPI LIMITED DUE TO DEMENTIA This patient is an 83 year old male brought in by EMS presenting to [facility] with a chief complaint of altered mental status. Per EMS, [facility] nurse called them stating that pt has had a minor altered mental status due to a fall that happened during the day. Pt is wheelchair bound and said to have fallen from chair. Pt currently has a UTI with an condom catheter in place. Patient has a Hx of dementia. - History Of Current Complaint Chief Complaint: EDGeneral Stated Complaint: GENERAL PER EMS Hx Obtained From: EMS Hx From Patient Unobtainable Due To: Dementia - Allergies/Home Medications Allergies/Adverse Reactions: Allergies Allergy/AdvReac Type Severity Reaction Status Date / Time Sulfa (Sulfonamide Allergy Unknown Verified 03/22/19 22:20 Antibiotics) Reaction Details PMH/Surg Hx/FS Hx/Imm Hx Endocrine/Hematology History: Reports: Hx Anemia Denies: Hx Diabetes Cardiovascular History: Denies: Hx Congestive Heart Failure, Hx Hypertension Respiratory History: Reports: Hx Seasonal Allergies GI History: Reports: Hx Gall Bladder Disease History: Reports: Hx Benign Prostatic Hyperplasia Musculoskeletal History: Reports: Hx Arthritis Sensory History: Reports: Hx Contacts or Glasses, Hx Hearing Problem Denies: Hx Hearing Aid Opthamlomology History: Reports: Hx Contacts or Glasses - Surgical History Surgery Procedure, Year, and Place: - 2002 (approx). 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 Negative: Blood Disorder - Social History Alcohol Use: None Hx Substance Use: No Substance Use Type: Reports: None Hx Tobacco Use: No Smoking Status (MU): Never Smoked Tobacco - Additional Comments History Additional Comments: LEVEL 5 CAVEAT: PMH LIMITED DUE TO DEMENTIA Review of Systems - ROS Summary Review of Systems Summary: LEVEL 5 CAVEAT: ROS LIMITED DUE TO DEMENTIA Neurological: Other - Altered mental status All Other Systems Reviewed And Are Negative: No Physical Exam - Summary Physical Exam Summary: General: Elderly MALE. Cachectic appearing. HEENT: Normocephalic, Atraumatic. Eyes: Conjuctiva normal, PERRL. Ears: TMs within normal limits. Nares: (-) discharge, (-) erythema. Oropharynx: Clear, mucous membranes moist, (-) exudates. Neck: Soft, FROM, (-) lymphadenopathy, (-) thyromegaly, (-) JVD. Cardiovascular: Normal sinus rhythm, (-) murmur. Lungs: Clear to auscultation bilaterally (-) wheezes, (-) rales, (-) rhonchi. Abdomen: Soft, non-tender, non-distended, (-) organomegaly, normal bowel sounds. Back: (-) CVA tenderness Extremities: No edema. Skin: Warm, dry, (-) rash. Neuro: Alert and oriented x3, no focal deficits. Psychiatric: Dementia, confusion. Triage Information Reviewed: Yes Vital Signs On Initial Exam: Initial Vitals Temp Pulse Resp BP Pulse Ox 98.1 F 59 17 122/76 94 08/01/19 02:57 08/01/19 02:57 08/01/19 02:57 08/01/19 02:57 08/01/19 02:57 Vital Signs Reviewed: Yes Procedures - Sedation Patient Received Moderate/Deep Sedation with Procedure: No Diagnostics - Vital Signs Vital Signs Temp Pulse Resp BP Pulse Ox 08/01/19 02:57 98.1 F 59 17 122/76 94 - Laboratory Result Diagrams: 08/01/19 04:22 08/01/19 04:22 Lab Statement: Any lab studies that have been ordered have been reviewed, and results considered in the medical decision making process. - Radiology CXR Radiology Interpretation Completed By: ED Physician Summary of Radiographic Findings: Highly rotated, elevated diaphram on the right , unchanged. No obvious pneumonia. Increased interstitial edema. No pleural effusion noted. Pending official radiologist report. - EKG 0340 Cardiac Rate: Bradycardia - 53 BPM EKG Rhythm: Sinus Rhythm Summary of EKG Findings: No STEMI. ED Physician has reviewed and interpreted this EKG. Altered Mental Statu Course/Dx - Course Course Of Treatment: 83-year-old male [facility] with dementia. Patient with perhaps more confusion than normal. Unable to give any history. Patient has urinary tract infection. Started on antibiotics. Return to [facility]. Follow up with PCP. Follow up sooner for any worsening symptoms. - Diagnoses Provider Diagnoses: UTI (urinary tract infection) Discharge ED - Sign-Out/Discharge Documenting (check all that apply): Patient Departure - Discharge - Discharge Plan Condition: Stable Disposition: HOME Prescriptions: Cephalexin CAP* [Keflex CAP*] 500 mg PO TID #21 cap Patient Education Materials: Urinary Tract Infection in Men (ED) Referrals: Marcelle aCrpio MD [Primary Care Provider] - Additional Instructions: Return to ED with new or worsening symptoms. - Billing Disposition and Condition Condition: STABLE Disposition: Home - Attestation Statements Document Initiated by Ana: Yes Documenting Scribe: Emilio Bella Provider For Whom Ana is Documenting (Include Credential): Rosa Vo MD Scribe Attestation: Emilio Gomez scribed for Rosa oV MD on 08/01/19 at 0633. Scribe Documentation Reviewed: Yes Provider Attestation: The documentation as recorded by the Emilio romeo accurately reflects the service I personally performed and the decisions made by me, Rosa Vo MD Status of Scribe Document: Viewed
[2019-08-01] MEDS ORDERED: NS 0.9% 1000 ML** 1,000 ML IV ONE (03:26)
[2019-08-01 03:50] LABS: Urine Appearance Cloudy; Urine Bacteria Absent (Absent); Urine Bilirubin Negative (Negative); Urine Blood Negative (Negative); Urine Color Yellow; Urine Glucose Negative (Negative); Urine Ketones Negative (Negative); Urine Nitrite Negative (Negative); Urine Protein 1+(30 mg/dL) (Negative); Urine Red Blood Cell Absent (Absent); Urine Specific Gravity 1.018 (1.010-1.030); Urine Squamous Epithelial Cell Present (Absent); Urine Urobilinogen Negative (Negative); Urine White Blood Cell 3+(>20/hpf) (Absent)
[2019-08-01 04:34] LABS: ABS Eosinophils 0.6 10^3/ul (0-0.6); ABS Lymphocytes 0.6 10^3/ul (1.0-4.8); ABS Monocytes 0.9 10^3/ul (0-0.8); ABS Neutrophils 5.8 10^3/ul (1.5-7.7); Eosinophil % 7.9 %; Hematocrit 46 % (42-52); Hemoglobin 15.5 g/dL (14.0-18.0); Lymphocyte % 7.4 %; Mean Corpuscular HGB Conc 34 g/dL (31-36); Mean Corpuscular Hemoglobin 33 pg (27-31); Mean Corpuscular Volume 98 fL (80-94); Mean Platelet Volume 8.3 fL (7.4-10.4); Nucleated Red Blood Cells % 0.1; Platelet Count 197 10^3/uL (150-450); Red Cell Distribution Width 13 % (10-15)
[2019-08-01 04:39] LABS: INR 1.14 (0.82-1.09)
[2019-08-01 04:52] LABS: Albumin 3.3 g/dL (3.2-5.2); BUN/Creatinine Ratio 38.2 (8-20); Calcium 8.4 mg/dL (8.6-10.3); EGFR African American 135.1 (>60); EGFR Non-African American 111.6 (>60); Globulin 3.2 g/dL (2-4); Potassium 3.9 mmol/L (3.5-5.0); Total Bilirubin 0.6 mg/dL (0.2-1.0); Total Protein 6.5 g/dL (6.4-8.9)
[2019-08-01 04:53] LABS: Troponin I 0.01 ng/mL (<0.04)
[2019-08-01] MEDS ORDERED: cefTRIAXone(*) 2 GM in NS 0.9% 100 ML* 100 ML IVPB ONE (04:56)
[2019-08-01 06:15] VITALS: BP 127/76
== END 2019-08-01 06:13 | disposition home or self-care (01) ==
LOC: ED 02:49
DX: N39.0 Urinary tract infection, site not specified (principal); D64.9 Anemia, unspecified; F03.90 Unspecified dementia, unspecified severity, without behavioral disturbance, psychotic disturbance, mood disturbance, and anxiety; N40.0 Benign prostatic hyperplasia without lower urinary tract symptoms; Z99.3 Dependence on wheelchair
CPT/HCPCS: 36415; 71045; 80053; 81003; 81015; 83605; 84484; 85025; 85610; 87086; 93005; 96361; 96365; 99284; J0696

== ENCOUNTER 2019-08-14 02:24 | Inpatient (IN) | payer MEDICARE, OTHER ==
--- NOTE | 2019-08-14 03:01 | ED ---
Altered Mental Status - HPI Summary HPI Summary: 83 year old male presents to the ED by EMS due to altered mental status. THIS IS A LEVEL 5 CAVEAT DUE TO ALTERED MENTAL STATUS. Patient had a UTI a month ago and as a result was prescribed Keflex for 21 days and was given a condom catheter. Patient has had a bradycardic heart rate of approximately 30 bpm for around 3 years to date. - History Of Current Complaint Chief Complaint: EDAltMentalStatus Stated Complaint: AMS PER EMS Time Seen by Provider: 08/14/19 02:40 Hx Obtained From: Family/E [employer], EMS, Medical Records Hx From Patient Unobtainable Due To: Altered Mental Status Onset/Duration: Unknown, Still Present Character: Confusion, Responsiveness, Lethargy Aggravating Factor(s): Unknown Alleviating Factor(s): Unknown - Allergies/Home Medications Allergies/Adverse Reactions: Allergies Allergy/AdvReac Type Severity Reaction Status Date / Time Sulfa (Sulfonamide Allergy Unknown Verified 03/22/19 22:20 Antibiotics) Reaction Details Home Medications: Home Medications Melatonin/Pyridoxine HCl (B6) [Melatonin 3 mg Tablet] 2 each PO QPM 08/14/19 [ History Confirmed 08/14/19] PMH/Surg Hx/FS Hx/Imm Hx Endocrine/Hematology History: Reports: Hx Anemia Denies: Hx Diabetes Cardiovascular History: Denies: Hx Congestive Heart Failure, Hx Hypertension Respiratory History: Reports: Hx Seasonal Allergies GI History: Reports: Hx Gall Bladder Disease History: Reports: Hx Benign Prostatic Hyperplasia Musculoskeletal History: Reports: Hx Arthritis Sensory History: Reports: Hx Contacts or Glasses, Hx Hearing Problem Denies: Hx Hearing Aid Opthamlomology History: Reports: Hx Contacts or Glasses - Surgical History Surgery Procedure, Year, and Place: - 2002 (approx). 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 Negative: Blood Disorder - Social History Alcohol Use: None Hx Substance Use: No Substance Use Type: Reports: None Hx Tobacco Use: No Smoking Status (MU): Never Smoked Tobacco Review of Systems - ROS Summary Review of Systems Summary: Home Medications Medication Instructions Recorded Confirmed Type Acetaminophen [Acetaminophen Extra 500 mg PO Q4HR PRN 03/02/19 08/14/19 History Strength] Albuterol 2.5MG/3ML (0.083%)* 2.5 mg INH Q6H PRN 03/02/19 08/14/19 History [Ventolin 2.5 MG/3 ML NEB.MEME*] Artificial Tears* 15 ML BTL 2 drop BOTH EYES BEDTIME PRN 03/02/19 08/14/19 History [Polyvinyl Alcohol 1.4% OPTH*] Cholecalciferol (Vitamin D3) 50,000 unit PO MONTHLY 03/02/19 08/14/19 History [Vitamin D3] Magnesium Hydroxide LIQ* [Milk of 30 ml PO Q3D PRN 03/02/19 08/14/19 History Magnesia LIQ*] Sennosides/Docusate Sodium 2 tab PO BID PRN 03/02/19 08/14/19 History [Senna-S Tablet] Tamsulosin CAP* [Flomax CAP*] 0.4 mg PO BEDTIME 03/02/19 08/14/19 History guaiFENesin LIQ* [Robitussin*] 5 mg PO Q4H PRN 03/02/19 08/14/19 History traZODone TAB* [Desyrel TAB*] 25 mg PO BEDTIME PRN 03/02/19 08/14/19 History Nystatin OINT* 1 applic TOPICAL TID 14 Days #1 03/19/19 08/14/19 Rx tube ceFUROXime 250 MG TAB [Ceftin TAB 250 mg PO BID #10 tab 03/19/19 08/14/19 Rx 250 MG(*)] Cephalexin CAP* [Keflex 500 CAP*] 500 mg PO QID #28 cap 04/08/19 08/14/19 Rx Cephalexin CAP* [Keflex CAP*] 500 mg PO TID #21 cap 08/01/19 08/14/19 Rx Negative: Fever Positive: Other - AMS All Other Systems Reviewed And Are Negative: No Physical Exam - Summary Physical Exam Summary: THIS IS A LEVEL 5 CAVEAT DUE TO AMS. General: Well-developed, well-nourished, elderly male. No acute distress. Lethargic. HEENT: Normocephalic, Atraumatic. Eyes: Conjuctiva normal, PERRL. Ears: TMs within normal limits. Nares: (-) discharge, (-) erythema. Oropharynx: Clear, mucous membranes dry, (-) exudates. Neck: Soft, FROM, (-) lymphadenopathy, (-) thyromegaly, (-) JVD. Cardiovascular: Normal sinus rhythm, (-) murmur. Lungs: Clear to auscultation bilaterally (-) wheezes, (-) rales, (-) rhonchi. Abdomen: Soft, non-tender, non-distended, (-) organomegaly, normal bowel sounds. Back: (-) CVA tenderness Extremities: No edema. Skin: Warm, dry, (-) rash. Triage Information Reviewed: Yes Vital Signs On Initial Exam: Initial Vitals Temp Pulse Resp BP Pulse Ox 98.2 F 70 18 120/71 93 08/14/19 02:28 08/14/19 02:28 08/14/19 02:28 08/14/19 02:28 08/14/19 02:28 Vital Signs Reviewed: Yes Completion Of Physical Exam Limited Due To: Level 5 - Talib Coma Scale Best Eye Response: 4 - Spontaneous Best Motor Response: 6 - Obeys Commands Best Verbal Response: 4 - Confused Coma Scale Total: 14 Procedures - Sedation Patient Received Moderate/Deep Sedation with Procedure: No - Procedural Sedation/Analgesia Sedation Course: RT Present, Emergency Airway Equipment Available, Time Out Completed, End-tidal Capnography Utilized Adverse Reactions Experienced by Patient: None Mallampati Classification: Class I ASA Classification: Class III: Severe Systemic Disease Pre-Procedural Heart: S1 and S2 Pre-Procedural Lungs: Clear Auscultation Cleared for Moderate Sedation: No Pre-Procedural Diagnosis: respiratory failure with hypercapnia Post-Procedural Diagnosis: respiratory failure with hypercapnia, intubated Procedure: intubation Estimated Blood Loss: None Specimen(s): None Findings: None Implants/Tubes/Drains Placed: None - Intubation Time of Intubation: 06:46 Intubation Method: orotracheal Tube Size (cm): 7.5 Medications: Succinylcholine Breath Sounds after Intubation: equal Intubation Complications: no complications Post Intubation Xray: Yes Diagnostics - Vital Signs Vital Signs Temp Pulse Resp BP Pulse Ox 08/14/19 02:28 98.2 F 70 18 120/71 93 - Laboratory Result Diagrams: 08/15/19 04:39 08/15/19 04:39 Lab Statement: Any lab studies that have been ordered have been reviewed, and results considered in the medical decision making process. - Radiology CXR Radiology Interpretation Completed By: ED Physician Summary of Radiographic Findings: CXR impression reveals no acute changes. Dr. Vo has interpreted and reviewed this CXR. CXR2 Radiology Interpretation Completed By: ED Physician Summary of Radiographic Findings: Tube appeared above junior. Dr. Vo reviewed and interpreted this CXR. Pending official read. - CT Brain CT CT Interpretation Completed By: Radiologist Summary of CT Findings: Brain CT shows: IMPRESSION: 1. The study is significantly degraded by motion. Incomplete study. A portion of brain was not imaged. Of the brain which was studied, no hemorrhage, mass or hydrocephalus. 2. Recommend repeating the head CT when the patient is able to hold still. An ED physician has reviewed this report. - EKG 0236 Cardiac Rate: Bradycardia - 32 BPM EKG Rhythm: Sinus Rhythm EKG Comparison: No Significant Change Summary of EKG Findings: EKG at 0236 reveals bradycardic sinus rhythm with rate of 32 BPM, no acute changes, no ischemic changes. No STEMI. This EKG was reviewed and interpreted by Dr. Vo. Altered Mental Statu Course/Dx - Course Course Of Treatment: 83-year-old male with change in mental status. Workup demonstrated negative UTI. X-ray with no significant change. ABG done. Found to have respiratory failure with hypercapnia. Started on BiPAP but worsened. Patient intubated. Referred to hospitalist for admission. - Diagnoses Provider Diagnoses: Respiratory failure with hypercapnia - Provider Notifications Discussed Care Of Patient With: Neymar Cabezas - Hospitalist Time Discussed With Above Provider: 05:12 Instructed by Provider To: Admit As Inpatient - Spoke to Dr. Barr. He accepted the patient for admission. Admit/Transition Orders Completed By ED Provider: No - Critical Care Time Critical Care Time: 75-104 min - 90 min Discharge ED - Sign-Out/Discharge Documenting (check all that apply): Patient Departure - Admit All imaging exams completed and their final reports reviewed: Yes - Discharge Plan Condition: Critical Disposition: ADMITTED TO [facility] - Billing Disposition and Condition Condition: CRITICAL Disposition: Admitted to [facility] - Attestation Statements Document Initiated by Scribe: Yes Documenting Scribe: Selvin Heaton Provider For Whom Scribe is Documenting (Include Credential): Rosa Vo MD. Scribe Attestation: Selvin Gomez, scribed for Rosa Vo MD. on 08/15/19 at 0553. Scribe Documentation Reviewed: Yes Provider Attestation: The documentation as recorded by the scribeSelvin accurately reflects the service I personally performed and the decisions made by , Rosa Vo MD. Status of Scribe Document: Viewed
[2019-08-14 03:11] LABS: ABS Eosinophils 0.3 10^3/ul (0-0.6); ABS Lymphocytes 0.4 10^3/ul (1.0-4.8); ABS Monocytes 0.7 10^3/ul (0-0.8); ABS Neutrophils 5.6 10^3/ul (1.5-7.7); Eosinophil % 3.7 %; Hematocrit 51 % (42-52); Hemoglobin 17.4 g/dL (14.0-18.0); Lymphocyte % 6.2 %; Mean Corpuscular HGB Conc 34 g/dL (31-36); Mean Corpuscular Hemoglobin 33 pg (27-31); Mean Corpuscular Volume 98 fL (80-94); Mean Platelet Volume 8.8 fL (7.4-10.4); Nucleated Red Blood Cells % 0.5; Platelet Count 219 10^3/uL (150-450); Red Blood Count 5.21 10^6 /uL (4.18-5.48); Red Cell Distribution Width 13 % (10-15)
[2019-08-14 03:17] LABS: INR 1.04 (0.82-1.09)
[2019-08-14 03:24] LABS: Urine Bacteria Absent (Absent); Urine Red Blood Cell 2+(6-10/hpf) (Absent); Urine White Blood Cell Trace(0-5/hpf) (Absent)
[2019-08-14 03:25] LABS: Albumin 3.9 g/dL (3.2-5.2); Albumin/Globulin Ratio 1.1 (1-3); BUN/Creatinine Ratio 38.5 (8-20); EGFR African American 142.3 (>60); EGFR Non-African American 117.6 (>60); Globulin 3.7 g/dL (2-4); Potassium 4.2 mmol/L (3.5-5.0); Total Bilirubin 0.6 mg/dL (0.2-1.0); Total Protein 7.6 g/dL (6.4-8.9)
[2019-08-14 03:33] LABS: Urine Appearance Clear; Urine Bilirubin Negative (Negative); Urine Blood Negative (Negative); Urine Color Yellow; Urine Glucose Negative (Negative); Urine Ketones Trace (Negative); Urine Nitrite Negative (Negative); Urine Protein 1+(30 mg/dL) (Negative); Urine Specific Gravity 1.023 (1.010-1.030); Urine Urobilinogen Negative (Negative)
[2019-08-14 04:25] LABS: Erythrocyte Sed Rate 40 mm/Hr (0-19)
[2019-08-14] MEDS ORDERED: Lorazepam PYXIS KEY PRN (05:23)
[2019-08-14] MEDS ORDERED: LORazepam INJ* 2 MG/ML 1 ML VIAL IV PUSH ONE (05:23)
[2019-08-14] MEDS ORDERED: Lorazepam PYXIS KEY ONE (05:26)
[2019-08-14] MEDS ORDERED: Etomidate* 2 MG/ML 20 ML VIAL (40 MG) ONE (06:30)
[2019-08-14] MEDS ORDERED: Succinylcholine* 20 MG/ML 10 ML VIAL ONE (06:31)
[2019-08-14] MEDS ORDERED: Propofol* 100 ML IV ONE (07:07)
[2019-08-14] MEDS ORDERED: Propofol* 100 ML ONE (07:09)
[2019-08-14] MEDS ORDERED: NS 0.9% 500 ML* 500 ML IV ONE (07:51)
[2019-08-14] MEDS ORDERED: fentaNYL INFUSION 50 MCG/ML* 2,500 MCG/50 ML BAG IV SCH (08:00)
--- NOTE | 2019-08-14 08:02 | ED ---
Progress - Progress Note Progress Note: received call from radiology for concern that ET tube is too high, tube was repositioned approx 4 cm lower, repeat CXR pending. Patient to ICU. Course/Dx - Diagnoses Provider Diagnoses: Respiratory failure with hypoxia and hypercapnia - Provider Notifications Time Discussed With Above Provider: 05:12 Instructed by Provider To: Admit As Inpatient - Spoke to Dr. Barr. He accepted the patient for admission. Admit/Transition Orders Completed By ED Provider: Yes - Critical Care Time Critical Care Time: 75-104 min - 90 min Discharge ED - Sign-Out/Discharge Documenting (check all that apply): Patient Departure - Discharge Plan Condition: Critical Disposition: ADMITTED TO [facility] Referrals: Marcelle Carpio MD [Primary Care Provider] - - Billing Disposition and Condition Condition: CRITICAL Disposition: Admitted to [facility]
[2019-08-14 10:02] LABS: C Reactive Protein 10.14 mg/L (<8.01)
[2019-08-14] MEDS ORDERED: Lactated Ringers 1000 ML Bag* 1,000 ML IV ONE ×2 (11:17→21:00)
[2019-08-14 11:30] LABS: Urine Appearance Cloudy; Urine Bacteria Absent (Absent); Urine Bilirubin Negative (Negative); Urine Blood Negative (Negative); Urine Color Amber; Urine Glucose Negative (Negative); Urine Ketones Trace (Negative); Urine Nitrite Negative (Negative); Urine Protein 1+(30 mg/dL) (Negative); Urine Red Blood Cell 3+(>10/hpf) (Absent); Urine Specific Gravity 1.027 (1.010-1.030); Urine Squamous Epithelial Cell Present (Absent); Urine Urobilinogen Negative (Negative); Urine White Blood Cell 1+(6-10/hpf) (Absent)
[2019-08-14] MEDS ORDERED: Albuterol/Ipratropium NEB.SOL* Albuterol 2.5 MG/Ipratropium 0.5 MG 3 ML ONE (11:31)
[2019-08-14] MEDS: methylPREDNISolone 125 MG* 2 ML VIAL IVPB SCH ×2 (12:21→18:16)
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
--- NOTE | 2019-08-14 13:37 | HP ---
HISTORY AND PHYSICAL: DATE OF ADMISSION: 08/14/19 ADMITTING PROVIDER: Neymar Cabezas MD. PRIMARY CARE PHYSICIAN: Megan Ferrell DO and other providers at the [facility]. CHIEF COMPLAINT: Altered mental status. HISTORY OF PRESENT ILLNESS: Eleuterio Myles is an 83-year-old male with past medical history of rheumatoid arthritis, depression, BPH, immobility (confined mostly to his bed recently versus wheelchair), and dementia. He was noted to have some altered mental status and increased confusion, was sent from [facility]. Initial workup included no leukocytosis, afebrile, sinus bradycardia on EKG (with baseline of bradycardia), normotensive, was satting 93% on room air. He did have 1 desat to 88% around 2:30 a.m. and an ABG was obtained at 4:15 am, which demonstrated respiratory acidosis with pH of 7.28, pCO2 of 76, pO2 of 91, bicarb of 29.7. He was placed on BiPAP and he did not tolerate it well. Repeat ABG at 6:1am demonstrated worsening respiratory acidosis with pH of 7.18, pCO2 of 94, pO2 of 71, and bicarb of 27.5. Dr. Vo intubated the patient and he was referred to the hospitalist service for admission for altered mental status and acute hypercapnic respiratory failure with need for mechanical intubation. The patient has a history of UTIs and completed courses of Keflex for Proteus mirabilis in urine cultures of 04/08/19 and 07/21/19. I talked to sister Hollie who says that per her knowledge the patient fell out of bed about a week ago. He did have a CT head in the emergency room, which was extremely limited given motion degradation and did not capture the entirety of his head - I have ordered a repeat but still pending. He has no history of smoking or asthma. Per Hollie, he uses no inhalers. I have added a BNP given pulmonary interstitial edema on initial chest x-ray and that has returned 118. He has never had an ECHO in our system or any history of known congestive heart failure. He got hypotensive to 60/40s with propofol initiation. This was stopped and was bolused 500 cc with improvement to the 120s/70s. PAST MEDICAL HISTORY: Rheumatoid arthritis, failure to thrive, constipation, hyperlipidemia, generalized muscle weakness, BPH, depression, dementia, immobility with wheelchair and bedbound status. MEDICATIONS: Include: 1. Melatonin 6 mg p.o. q.p.m. 2. Flomax 0.4 mg p.o. bedtime. 3. Senna and docusate 2 tabs p.o. b.i.d. p.r.n. 4. Milk of magnesia 30 mL p.o. q.3 days p.r.n. 5. Cholecalciferol 50,000 units p.o. monthly. 6. Acetaminophen 500 mg p.o. q.4 hours p.r.n. ALLERGIES: Sulfa, unknown. FAMILY HISTORY: Father had a history of heart disease and cancer. SOCIAL HISTORY: The patient lives at [facility]. Healthcare proxy is sister Hollie Jean-Baptiste who lives in [place] and was contacted by phone. His MOLST form updated 06/10/19 and signed 03/19/19 and he was a full code with trial of intubation. He is never a smoker. No alcohol use. 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 REVIEW OF SYSTEMS: Unobtainable given the patient is currently intubated. PHYSICAL EXAMINATION GENERAL APPEARANCE: Acutely ill. VITAL SIGNS: Initially temperature 98.2, heart rate varies between 37 and 66, respiratory rate between 5 and 24. Initial oxygen sat of 93, dipped down to 88. Blood pressure initially 120/71, he did get hypotensive with the propofol to 60/40s HEENT: Normocephalic, atraumatic. Pupils 2 to 1 on the right, 1 on the left. LUNGS: Anteriorly clear to auscultation. CARDIOVASCULAR: Heart rate is bradycardic, regular. No murmurs appreciated. ABDOMEN: Soft, nontender, nondistended. No twitching. EXTREMITIES: Warm, well perfused. No peripheral edema. SKIN: No lesions. No rashes. LINES/DEVICES: He came in with a condom cath. He now has a López catheter. He has an OG tube, draining green liquid. DIAGNOSTIC STUDIES/LAB DATA: White count 7.0, hemoglobin 17.4, hematocrit 51, platelets 219. MCV 98, ESR 40, INR 1.04. ABG at 4:15 a.m. was pH 7.28, pCO2 76 , pO2 91, bicarb 29.7. Repeat at 6:15, pH of 7.18, pO2 of 71, bicarb of 27.5. Sodium was 140, potassium 4.2, chloride 103, carbon dioxide 31, BUN 25, creatinine 0.65, glucose 107, lactic acid 0.5, total bili 0.6. AST 19, ALT 23, alk phos 124, troponin 0.00, BNP 118. Urinalysis 1+ protein, trace ketones, 2+ rbc's. Albumin was 3.9. Imaging: Initial chest x-ray demonstrated low lung volumes with pulmonary interstitial edema. CT brain, the study is significantly degraded by motion, incomplete study, a portion of the brain was not imaged. Of the brain which was studied, no hemorrhage, mass, or hydrocephalus. Recommend repeating head CT when the patient is able to hold still. Repeat chest x-ray at 6:57 demonstrated ET tube overlying the trachea above the junior , small bowel loops noted overlying the left lower lung which may indicate the presence of a diaphragmatic hernia. (I measured ETT as 6.6 cm above the junior) EKG demonstrated sinus bradycardia with heart rate 32, has variable MD interval with the longest 249. No ST elevations or depressions. ASSESSMENT AND PLAN: Eleuterio Myles is an 83-year-old male with past medical history of dementia, immobility with largely bedbound status versus wheelchair with fall approximately 1 week ago and history of urinary tract infections, presenting with altered mental status, now intubated after acute and worsening hypercapnic respiratory failure and inability to tolerate BiPAP. Altered mental status, etiology is unclear but includes hypercapnia with no known history of chronic obstructive pulmonary disease and sister Hollie says he has never been a smoker. He is now intubated and Dr. Young Richards of the hazmat tanker driver service will be asked to take over the management later in the AM. I am repeating the ABG, he did get hypotensive to 60/40s with the propofol and has since been stopped. Fentanyl drip is on standby as needed to titrate for RASS of -4 . We will do sedation holidays every morning, and could possibly have a trial of extubation later today after repeat of ABG pending clinical course. I am going to get a repeat CT head given his recent fall and the very limited study, initially in the emergency room, now that he is no longer moving around. Blood culture was obtained, I will follow that. Urine is not suspicious for a urinary tract infection at this time. Hypercapnic respiratory failure and elevated BNP. I am getting an echocardiogram. He did have some pulmonary interstitial edema on initial chest x -ray. He has a López catheter now, strict I's and O's. If his pressure tolerates, could consider gentle diuresis. For his rheumatoid arthritis, under no management at home, but noted that ESR is elevated to 40. For benign prostatic hyperplasia, continue to use Flomax. He now has a López catheter. Code status: He is a full code. Confirmed with sister Hollie who lives remotely in [place] and is not able to travel per hip issues. He has no other family. For DVT prophylaxis, we will start heparin 5000 t.i.d. We will also start Pepcid for GI ppx. [id number]/[facility] #: [id number] KAIT
[2019-08-14] MEDS: Heparin VIAL(*) 5000 UNITS/ML VIAL (FIVE THOUSAND) SUBCUT SCH ×2 (14:28→21:26)
[2019-08-14] MEDS: Albuterol/Ipratropium NEB.SOL* Albuterol 2.5 MG/Ipratropium 0.5 MG 3 ML INH SCH ×3 (15:26→23:51)
[2019-08-14] MEDS: Chlorhexidine MOUTHWASH 0.12%* 15 ML UDC TOPICAL SCH ×2 (18:16→21:35)
[2019-08-14] MEDS: Propofol* 100 ML IV ONE ×2 (20:42→21:35)
[2019-08-14] MEDS: Famotidine IV* 10 MG/ML 2 ML (20 mg) IV SLOW PU SCH (21:26)
[2019-08-14] MEDS ORDERED: Atropine SYRINGE* 0.1 MG/ML 10 ML SYRINGE (1 MG) ONE (23:12)
[2019-08-14] MEDS ORDERED: Atropine SYRINGE* 0.1 MG/ML 10 ML SYRINGE (1 MG) IV ONE (23:55)
[2019-08-14] MEDS ORDERED: Atropine SYRINGE* 0.1 MG/ML 10 ML SYRINGE (1 MG) IV PRN (23:57)
[2019-08-15] MEDS: Chlorhexidine MOUTHWASH 0.12%* 15 ML UDC TOPICAL SCH ×4 (00:10→21:01)
[2019-08-15] MEDS: Lactated Ringers 1000 ML Bag* 1,000 ML IV SCH ×3 (00:30→19:33)
[2019-08-15] MEDS: methylPREDNISolone 125 MG* 2 ML VIAL IVPB SCH ×4 (01:40→17:58)
[2019-08-15] MEDS: Albuterol/Ipratropium NEB.SOL* Albuterol 2.5 MG/Ipratropium 0.5 MG 3 ML INH SCH ×2 (03:03→07:23)
[2019-08-15 04:47] LABS: ABS Lymphocytes 0.2 10^3/ul (1.0-4.8); ABS Monocytes 0.1 10^3/ul (0-0.8); ABS Neutrophils 4.7 10^3/ul (1.5-7.7); Eosinophil % 0.1 %; Hematocrit 43 % (42-52); Hemoglobin 14.3 g/dL (14.0-18.0); Lymphocyte % 4.2 %; Mean Corpuscular HGB Conc 34 g/dL (31-36); Mean Corpuscular Hemoglobin 33 pg (27-31); Mean Corpuscular Volume 99 fL (80-94); Mean Platelet Volume 8.7 fL (7.4-10.4); Platelet Count 177 10^3/uL (150-450); Red Blood Count 4.33 10^6 /uL (4.18-5.48); Red Cell Distribution Width 13 % (10-15)
[2019-08-15] MEDS: Heparin VIAL(*) 5000 UNITS/ML VIAL (FIVE THOUSAND) SUBCUT SCH ×3 (05:03→22:14)
[2019-08-15 05:07] LABS: BUN/Creatinine Ratio 42.4 (8-20); Calcium 7.8 mg/dL (8.6-10.3); EGFR African American 159.1 (>60); EGFR Non-African American 131.5 (>60); Magnesium 1.7 mg/dL (1.9-2.7); Phosphorus 3.1 mg/dL (2.5-5.0); Potassium 3.9 mmol/L (3.5-5.0)
[2019-08-15] MEDS: Propofol* 100 ML IV ONE (05:43)
[2019-08-15] MEDS ORDERED: Magnesium Sulfate 1 GM IV* 1 GM/100 ML BAG IV ONE (06:00)
[2019-08-15] MEDS: Famotidine IV* 10 MG/ML 2 ML (20 mg) IV SLOW PU SCH (07:54)
[2019-08-15] MEDS ORDERED: Perflutren Lipid Microsphere* 3 ML VIAL ONE (08:33)
[2019-08-15] MEDS ORDERED: Albuterol/Ipratropium NEB.SOL* Albuterol 2.5 MG/Ipratropium 0.5 MG 3 ML INH PRN (10:40)
--- NOTE | 2019-08-15 12:09 | PN ---
Date of Service: 08/15/19 Critical Care Services: s/p extubation. tolerating extubation. bradycardic but has hx of bradycardia and seen by Cardiology in the past. Asymptomatic Cx's NGTD Vital Signs: Temp Pulse Resp BP SpO2 FiO2 96.8 F 35 16 97/51 97 30 08/15/19 08:00 08/15/19 10:00 08/15/19 08:00 08/15/19 10:00 08/15/19 10:41 08/15 08:00 Physical Exam: Gen: NAD. AO times 3, Heart: RRR, Lungs: Decreased Breath sounds, GI: +BSs, soft, NTP. No rebound or guarding. Neuro: No focal deficits. Extremities: No edema. Fluid Balance (Past 24 Hours): I= O= Net Intake & Output 08/13/19 08/14/19 08/15/19 08/16/19 06:59 06:59 06:59 06:59 Intake Total 3688 Output Total 675 64 Balance 3013 -64 Weight 212 lb 190 lb 6.4 oz Intake: IV Fluids 3516 LR 3516 Medicated IV 172 CC - Propofol/Diprivan 172 Output: López 675 64 Labs: Laboratory Results - last 24 hr 08/14/19 08/14/19 08/15/19 15:42 15:42 04:39 WBC RBC Hgb Hct MCV MCH MCHC RDW Plt Count MPV Neut % (Auto) Lymph % (Auto) [place] % (Auto) Eos % (Auto) Baso % (Auto) Absolute Neuts (auto) Absolute Lymphs (auto) Absolute Monos (auto) Absolute Eos (auto) Absolute Basos (auto) Absolute Nucleated RBC Nucleated RBC % Patient Temperature ABG pH ABG pH (Temp Correct) ABG pCO2 ABG pCO2 (Temp Corrct ABG pO2 ABG pO2 (Temp Correct ABG HCO3 ABG O2 Saturation ABG Base Excess Respiration Rate O2 Delivery Device Ventilator Type Vent Mode FiO2 Inspiratory Time PEEP Pressure Support Pressure Control EPAP IPAP BiPAP Sodium 140 Potassium 3.9 Chloride 107 Carbon Dioxide 26 Anion Gap 7 BUN 25 H Creatinine 0.59 L Est GFR ( Amer) 159.1 Est GFR (Non-Af Amer) 131.5 BUN/Creatinine Ratio 42.4 H Glucose 128 H Calcium 7.8 L Phosphorus 3.1 Magnesium 1.7 L Ammonia 44 Troponin I 0.01 B-Natriuretic Peptide 84 08/15/19 08/15/19 04:39 05:40 WBC 5.0 RBC 4.33 Hgb 14.3 Hct 43 MCV 99 H MCH 33 H MCHC 34 RDW 13 Plt Count 177 MPV 8.7 Neut % (Auto) 93.0 Lymph % (Auto) 4.2 [place] % (Auto) 2.4 Eos % (Auto) 0.1 Baso % (Auto) 0.3 Absolute Neuts (auto) 4.7 Absolute Lymphs (auto) 0.2 L Absolute Monos (auto) 0.1 Absolute Eos (auto) 0.0 Absolute Basos (auto) 0.0 Absolute Nucleated RBC 0.0 Nucleated RBC % 0.0 Patient Temperature Not Reportable ABG pH 7.38 ABG pH (Temp Correct) Not Reportable ABG pCO2 45 ABG pCO2 (Temp Corrct Not Reportable ABG pO2 92 ABG pO2 (Temp Correct Not Reportable ABG HCO3 25.7 ABG O2 Saturation 98.9 H ABG Base Excess 1.0 Respiration Rate 16 O2 Delivery Device vent Ventilator Type 400 Vent Mode cmv FiO2 30 Inspiratory Time 1.0 PEEP 5 Pressure Support Not Reportable Pressure Control Not Reportable EPAP Not Reportable IPAP Not Reportable BiPAP Not Reportable Sodium Potassium Chloride Carbon Dioxide Anion Gap BUN Creatinine Est GFR ( Amer) Est GFR (Non-Af Amer) BUN/Creatinine Ratio Glucose Calcium Phosphorus Magnesium Ammonia Troponin I B-Natriuretic Peptide Impression: ARF of unclear etiology with hypercapnea change of mental status - resolved low Mg bradycardia- asymptomatic Plan: does not need Atropine. D/W Cardiology, Dr. Velasquez. at length. In 2012 patient had sinus bradycardia. as patient without sx's, no known LOC, and bed- bound with poor QOL, patient would not qualify for pacemaker. continue to monitor in the ICU overnight Wean off steroids No sedation Transfer to floor in the AM Replenish Mg Critical Care Time: 45 minutes
--- NOTE | 2019-08-15 12:24 | ECHO ---
*[facility]* [place] [address] Fax #: [phone] Transthoracic Echocardiogram Patient: Eleuterio Myles : 1935 Study Date: 08/15/2019 Age: 83 Gender: M HR: 42 bpm Height: 71 in /180.3 cm BSA: 2.04 m^2 Weight: 185.6 lb /84.4 kg BMI: 25.9 kg/m^2 *Switch House Operator: Nikki Carlton [facility] *Referring Physician: * Jacob Richards *Reading Physician: * Felipe Velasqeuz MD Indications: Myocardial Infarction (new). History: Risk factors: Dyslipidemia. Conclusions Summary: - Left ventricle: Systolic function is normal. The estimated ejection fraction is 55-60%. - Right ventricle: Systolic function is normal. - Left atrium: The atrium is mildly to moderately dilated. - Right atrium: The atrium is mildly to moderately dilated. - Suboptimal image quality. Study data: Transthoracic echocardiogram. Procedure: Transthoracic echocardiography was performed. Image quality was poor. No diagnostically useful parasternal views acquired. The study was technically limited due to Patient on ventilator. Intravenous Definity , 2 mls was administered. Complete 2D, spectral Doppler, and color flow Doppler. Location: ICU Patient status: Inpatient. Patient room number: 7. Rhythm: Bradycardia. Findings Left ventricle: The cavity size is normal. Wall thickness is mildly increased. Systolic function is normal. The estimated ejection fraction is 55-60%. Wall motion is normal; there are no regional wall motion abnormalities. Left ventricular diastolic function parameters are indeterminate. Right ventricle: Systolic function is normal. Left atrium: The atrium is mildly to moderately dilated. Right atrium: The atrium is mildly to moderately dilated. Mitral valve: Not well visualized. The leaflets appear normal thickness. There is no evidence of stenosis. There is no significant regurgitation. Aortic valve: Not well visualized. The leaflets appear normal thickness. There is no evidence of stenosis. There is no significant regurgitation. Tricuspid valve: Not well visualized. The leaflets appear normal thickness. There is no evidence of stenosis. There is no significant regurgitation. Pulmonic valve: Not well visualized. Aorta: The aorta is poorly visualized. Pericardium: There is no significant pericardial effusion. Pulmonary arteries: Not well visualized. Systolic pressure can not be accurately estimated. Systemic veins: Inferior vena cava: Not well visualized. Measurements Left ventricle Value Ref Left atrium Value Ref COLLIN, LAX (L) 4.1 cm 4.2 - ML dim, A4C 4.6 cm --------- 5.8 SI dim, A4C 6.2 cm --------- ESD, LAX 2.7 cm 2.5 - 4.0 Right atrium Value Ref FS, LAX 34 % 25 - 43 SI dim, ES (H) 6.3 cm 3.4 - 5.3 PW, ED, LAX (H) 1.1 cm 0.6 - ML dim, ES, A4C (H) 5.3 cm 2.6 - 4.4 1.0 Estimated RAP 8 mm Hg --------- EF 63 % 52 - 72 E', lat ana, TDI (L) 5.2 cm/sec >=10.0 Aortic valve Value Ref E/e', lat ana, 12 ------- Ana diam, ED 2.3 cm --------- TDI Peak v, S 1.09 m/sec --------- E', med ana, TDI 7.5 cm/sec >=7.0 VTI, S 29.3 cm --------- E/e', med ana, 8 ------- Mean grad, S 2.0 mm Hg --------- TDI Peak grad, S 5.0 mm Hg --------- E', avg, TDI 6.4 cm/sec ------- E/e', avg, TDI 10 <=14 Mitral valve Value Ref Peak E 0.62 m/sec --------- LVOT Value Ref Peak A 0.72 m/sec --------- Peak andrey, S 1.06 m/sec ------- Decel time 169 ms --------- Mean grad, S 2 mm Hg ------- Peak E/A ratio 0.9 --------- Ventricular septum Value Ref IVS, ED (H) 1.3 cm 0.6 - 1.0 Legend: (L) and (H) daniel values outside specified reference range. Prepared and electronically signed by Felipe Velasquez MD 08/15/2019 12:24
[2019-08-16] MEDS: methylPREDNISolone 125 MG* 2 ML VIAL IVPB SCH ×3 (00:11→13:10)
[2019-08-16] MEDS: Lactated Ringers 1000 ML Bag* 1,000 ML IV SCH ×3 (01:03→12:14)
[2019-08-16] MEDS: Heparin VIAL(*) 5000 UNITS/ML VIAL (FIVE THOUSAND) SUBCUT SCH ×3 (05:01→21:29)
[2019-08-16 05:06] LABS: ABS Lymphocytes 0.2 10^3/ul (1.0-4.8); ABS Monocytes 0.3 10^3/ul (0-0.8); ABS Neutrophils 7.9 10^3/ul (1.5-7.7); Hematocrit 43 % (42-52); Hemoglobin 14.2 g/dL (14.0-18.0); Lymphocyte % 2.3 %; Mean Corpuscular HGB Conc 33 g/dL (31-36); Mean Corpuscular Hemoglobin 33 pg (27-31); Mean Corpuscular Volume 98 fL (80-94); Mean Platelet Volume 9.1 fL (7.4-10.4); Platelet Count 198 10^3/uL (150-450); Red Blood Count 4.35 10^6 /uL (4.18-5.48); Red Cell Distribution Width 14 % (10-15); White Blood Count 8.5 10^3/uL (3.5-10.8)
[2019-08-16 05:24] LABS: EGFR African American 156.1 (>60)
--- NOTE | 2019-08-16 13:34 | PN ---
Date of Service: 08/16/19 Critical Care Services: sitting up. eating. confused but patient at baseline Vital Signs: Temp Pulse Resp BP SpO2 FiO2 97.8 F 62 17 125/78 94 30 08/16/19 13:08 08/16/19 13:01 08/16/19 13:01 08/16/19 13:01 08/16/19 13:01 08/15 08:00 Physical Exam: Gen: NAD. AO times 1, Heart: bradycardia. Lungs: Decreased Breath sounds, GI: + BSs, soft, NTP. No rebound or guarding. Neuro: No focal deficits. Extremities: No edema Fluid Balance (Past 24 Hours): I= O= Net Intake & Output 08/14/19 08/15/19 08/16/19 08/17/19 06:59 06:59 06:59 06:59 Intake Total 3688 2631 900 Output Total 675 1045 285 Balance 3013 1586 615 Weight 212 lb 190 lb 6.4 oz 191 lb 1 oz Intake: IV Fluids 3516 2527 660 LR 3516 2527 660 IVPB 84 LR 84 Medicated IV 172 CC - Propofol/Diprivan 172 Oral 20 240 Output: López 675 1045 285 Labs: Laboratory Results - last 24 hr 08/16/19 08/16/19 04:48 04:48 WBC 8.5 RBC 4.35 Hgb 14.2 Hct 43 MCV 98 H MCH 33 H MCHC 33 RDW 14 Plt Count 198 MPV 9.1 Neut % (Auto) 93.5 Lymph % (Auto) 2.3 [place] % (Auto) 4.0 Eos % (Auto) 0.0 Baso % (Auto) 0.2 Absolute Neuts (auto) 7.9 H Absolute Lymphs (auto) 0.2 L Absolute Monos (auto) 0.3 Absolute Eos (auto) 0.0 Absolute Basos (auto) 0.0 Absolute Nucleated RBC 0.0 Nucleated RBC % 0.0 Sodium 141 Potassium 4.0 Chloride 108 Carbon Dioxide 25 Anion Gap 8 BUN 24 Creatinine 0.60 L Est GFR ( Amer) 156.1 Est GFR (Non-Af Amer) 129.0 BUN/Creatinine Ratio 40.0 H Glucose 106 H Calcium 8.0 L Impression: ARF of unclear etiology with hypercapnea now resolved change of mental status - at baseline low Mg bradycardia- asymptomatic and chronic Plan: may transfer to floor stop steroids hold IVF's mixed and soft diet per Dietary bradycardia and now candidate for pacemaker as not symptomatic F/U Mg Critical Care Time: 45
[2019-08-16] MEDS ORDERED: Senna TAB 8.6 mg* TAB PO PRN (22:02)
[2019-08-16] MEDS ORDERED: Docusate CAP* 100 MG PO PRN (22:17)
[2019-08-16] MEDS ORDERED: Tamsulosin CAP* 0.4 MG PO SCH (23:00)
[2019-08-16] MEDS ORDERED: Melatonin 3 MG TAB PO SCH (23:00)
[2019-08-17] MEDS: Heparin VIAL(*) 5000 UNITS/ML VIAL (FIVE THOUSAND) SUBCUT SCH (05:06)
[2019-08-17 09:24] LABS: BUN/Creatinine Ratio 54.4 (8-20); EGFR African American 135.1 (>60); EGFR Non-African American 111.6 (>60); Magnesium 1.9 mg/dL (1.9-2.7); Potassium 3.6 mmol/L (3.5-5.0)
[2019-08-17] MEDS ORDERED: Lactated Ringers 1000 ML Bag* 1,000 ML IV SCH (11:00)
--- NOTE | 2019-08-17 14:49 | DS ---
CC: Dr. Megan Ferrell, [facility] * DATE OF ADMISSION: 08/14/2019. DATE OF DISCHARGE: 08/17/2019. PRIMARY CARE PHYSICIAN: Dr. Megan Ferrell. PRIMARY DIAGNOSES: 1. Acute hypercarbic respiratory failure. 2. Dementia. 3. Failure to thrive. SECONDARY DIAGNOSES: BPH. DISCHARGE MEDICATIONS: 1. Tamsulosin 0.4 mg at bedtime. 2. Senna S two tablets twice a day as needed for constipation. 3. Melatonin 3 mg nightly as needed for sleep. 4. Milk of Magnesia 30 ml p.o. as needed for constipation. 5. Vitamin D3 50,000 units monthly. 6. Tylenol 500 mg every 4 hours as needed for pain or fever. HISTORY OF PRESENT ILLNESS: Mr. Myles is an 83-year-old man with rheumatoid arthritis, advanced dementia, BPH, immobility, mostly confined to bed versus wheelchair, and depression, who is presenting with altered mental status. He was sent from [facility] given increased confusion. Collateral history obtained in the ER from his sister Hollie reveals that, per her knowledge, the patient fell approximately one prior to presentation. He had a CT in the emergency room which was extremely limited given motion artifact. Per his sister Hollie, he has no history of respiratory illnesses and does not use inhalers. HOSPITAL COURSE: In the emergency room, the patient was noted to be without leukocytosis. His EKG revealed his baseline bradycardia. He was normotensive and had oxygen saturation of 93 percent on room air. An ABG demonstrated respiratory acidosis with a PCO2 of 76. He was placed on BiPAP which he did not tolerate well and a repeat ABG four hours later demonstrated worsening respiratory acidosis with a pH of 7.18, PCO2 of 94, PO2 of 71, and a bicarb of 27.5. The emergency room attending intubated the patient and referred the patient to the ICU and Hospitalist Service for admission. While the patient does have a history of UTI 's, his UA was not concerning for infection. His urine culture eventually was without growth. By the next morning, ICU attending saw and evaluated the patient and noted that the patient had a clear chest x-ray and sedation was decreased in order to assess the patient's mental status. A transthoracic echocardiogram was also performed which showed a normal systolic function with an EF of 55 to 60 percent , RV function normal, LA and RA mildly to moderately dilated. By the patient's second full day of admission, he was extubated which he tolerated well. His mental status seemed to be back to his poor baseline. He persistently had bradycardia, but was not symptomatic from it and he was not given Atropine. His case was discussed with Dr. Velasquez of Cardiology who noted that in 2012 the patient had sinus bradycardia and, as he has remained without symptoms or loss of consciousness, and because he is bedbound with poor quality of life, he was not a candidate for pacemaker placement. He was given a short course of steroids which were discontinued by the time the patient was transferred to the floor on his third day of admission. His only notable laboratory abnormalities were mildly low magnesium which was repleted. His creatinine function was stable throughout the hospitalization and he had no CBC abnormalities. His blood cultures were negative by day three. His vital signs remained stable. On the day of discharge, a ten point review of systems was performed and the patient denies all symptoms. He does seem to be moderately confused, but this sounds like his baseline from severe dementia. He did state that he lives alone at home, although he does live at [facility] and has for many months or years. He referred all questions to his sister Hollie that he knows lives in [place]. PHYSICAL EXAMINATION: General: He is a chronically ill-appearing, frail, elderly man in no acute distress who is alert to voice and interactive with questions. Vital Signs: Afebrile, heart rate 44, blood pressure 103/52, respiratory rate 20, oxygen saturation 93 percent on room air. HEENT: OP clear. Very poor dentition. Moist mucus membranes. Neck: Supple. No JVD. Lungs: Clear to auscultation bilaterally. Heart: Bradycardic. Regular rate. No murmurs. Abdomen: Soft, nontender, nondistended. Extremities: Warm and well-perfused without edema. Skin: Without rash. Neuro: Patient knows who the president is, but does not know where he is, nor does he know the date. DIAGNOSTIC STUDIES: 1. CBC, BMP and LFT's largely unremarkable. 2. CRP 10. 3. BNP 118. 4. Troponin negative times two. 5. Two sets of blood cultures without growth by day three. 6. Urine culture is no growth. 7. Brain CT: The study is significantly degraded by motion, incomplete study, a portion of the brain was not imaged. Of the brain which was studied, no hemorrhage, mass or hydrocephalus. Recommend repeat head CT when the patient is able to hold still. 8. Chest x-ray: Small bowel loops noted overlying the left lower lung which may indicate the presence of a diaphragmatic hernia. Costophrenic angle is sharp. No pleural abnormalities noted. 9. Brain CT: No acute intracranial pathology. Mild diffuse involutional change with some mild chronic small vessel ischemic changes. 10. Repeat chest x-ray with again noted bowel loops overlying the left lower lung. The differential includes diaphragmatic hernia. 11. TTE as above. DISCHARGE PLAN: The patient will be discharged back to [facility] to follow-up with his primary care physician Dr. Megan Ferrell. This case has been discussed with her prior to discharge. He should continue his home medications as before without recent changes. The patient should continue to undergo goals of care discussion and update MOLST form. The patient was educated on return precautions which include, but are not limited to worsening respiratory status. He should eat his regular diet with activity as tolerated. DISPOSITION: To [facility]. CONDITION ON DISCHARGE: Improved. TIME SPENT: Approximately 60 minutes were spent on the discharge of this patient, more than half of which was spent with care coordination at bedside for interview and exam. [id number]/[facility] #: [id number] KAIT
[2019-08-17 15:58] VITALS: BP 120/66
[2019-08-17] MEDS ORDERED: Enoxaparin(*) 40 MG/0.4 ML SYR SUBCUT SCH (21:00)
--- NOTE | 2019-08-21 12:44 | HP ---
H&P (Free Text) History and Physical: ADDENDUM TO HISTORY AND PHYSICAL of 08/14/19 TIME spent on CRITICAL CARE management was 65 minutes.
== END 2019-08-17 16:20 | DRG 208 ==
LOC: ED 02:24 → ICU 07:35 → MEDTELE 08-16 13:26
PROVIDERS: ADMIT Internal Medicine; ATTEND Internal Medicine
PROC: 0BH17EZ Insertion of Endotracheal Airway into Trachea, Via Natural or Artificial Opening (ICD-10-PCS; principal; 2019-08-14)
PROC: 5A1945Z Respiratory Ventilation, 24-96 Consecutive Hours (ICD-10-PCS; 2019-08-14)
DX: J96.02 Acute respiratory failure with hypercapnia (principal); J81.1 Chronic pulmonary edema; F03.90 Unspecified dementia, unspecified severity, without behavioral disturbance, psychotic disturbance, mood disturbance, and anxiety; R62.7 Adult failure to thrive; N40.0 Benign prostatic hyperplasia without lower urinary tract symptoms; M06.9 Rheumatoid arthritis, unspecified; F32.9 Major depressive disorder, single episode, unspecified; E83.42 Hypomagnesemia; M62.81 Muscle weakness (generalized); K59.00 Constipation, unspecified; W06.XXXA Fall from bed, initial encounter; Z68.26 Body mass index [BMI] 26.0-26.9, adult; Z99.3 Dependence on wheelchair; Z74.01 Bed confinement status; Z79.1 Long term (current) use of non-steroidal anti-inflammatories (NSAID); Z79.899 Other long term (current) drug therapy; Z88.2 Allergy status to sulfonamides; Z82.49 Family history of ischemic heart disease and other diseases of the circulatory system; Z80.9 Family history of malignant neoplasm, unspecified; Y92.129 Unspecified place in nursing home as the place of occurrence of the external cause
CPT/HCPCS: 36415; 36600; 70450; 71045; 80048; 80053; 81003; 81015; 82140; 82803; 83605; 83735; 83880; 84100; 84484; 85025; 85610; 85652; 86140; 87040; 87086; 87641; 93005; 93306; 93970; 94002; 94003; 94640; 96365; 96375; 99285; A9270-GY; C8929; J0330; J0461; J1644; J2060; J2704; J2930; J3010; J3475